=== PATIENT | female | born 1990 | race American Indian/Alaskan Native ===

== ENCOUNTER 2017-06-10 10:55 | Emergency (ER) | payer OTHER ==
--- NOTE | 2017-06-10 11:54 | Emergency Department Report ---
HPI - General Chief Complaint: Extremity Injury, Lower Time Seen by Provider: 06/10/17 11:49 - HPI HPI: PATIENT C/O NUMBNESS, RIGHT LOWER EXT. SINCE SHE WOKE UP THIS MORNING. SHE STATES HERE SYMPTOMS HAVE BEEN ON AND OFF FOR TWO YEARS WITHOUT ANY COMPLETE RESOLUTION. NO FEVER, NO N/V. ED Past Medical Hx - Past Medical History Previous Medical History?: No - Surgical History Past Surgical History?: No - Family History Family history: hypertension - Social History Smoking Status: Current Every Day Smoker Substance Use Type: Alcohol - Medications Home Medications: Home Medications Medication Instructions Recorded Confirmed Last Taken Type methOCARBAMOL [Robaxin TAB] 500 mg PO BID #14 tab 06/06/15 Unknown Rx Gabapentin [Neurontin] 100 mg PO Q8HR #30 capsule 06/10/17 Unknown Rx methylPREDNISolone [Medrol] 4 mg PO QAM #1 tab.ds.pk 06/10/17 Unknown Rx ED Review of Systems ROS: Stated complaint: BILAT LEGS NUMB/HURTING Other details as noted in HPI Comment: All other systems reviewed and negative Gastrointestinal: as per HPI Musculoskeletal: other (LEG NUMBNESS) Physical Exam - Physical Exam Vital Signs: Vital Signs 06/10/17 11:34 Temperature 98.4 F Pulse Rate 76 Respiratory 17 Rate Blood Pressure 150/80 O2 Sat by Pulse 100 Oximetry Physical Exam: - General Limitations: No Limitations General appearance: alert, in no apparent distress - Eye Eye exam: Present: normal appearance - Neck Neck exam: Present: normal inspection - Expanded Lower Extremity Exam Right Hip exam: Present: full ROM, tenderness (along the right bursa), pelvic stability Upper Leg exam: Present: tenderness (visible muscle spasm of the quadriceps) Knee exam: Present: full ROM. Absent: tenderness Lower Leg exam: Absent: Giorgi's sign Ankle exam: Present: full ROM Foot/Toe exam: Present: full ROM, tenderness. Absent: tenderness at base of 5th metatarsal Neuro vascular tendon exam: Present: no vascular compromise. Absent: foot drop , peroneal nerve deficit Gait: Positive: observed and limited by pain - Back Exam Back exam: Absent: vertebral tenderness - Neurological Exam Neurological exam: Present: alert, oriented X3 - Psychiatric Psychiatric exam: Present: normal affect, normal mood - Skin Skin exam: Present: warm, dry, intact, normal color. Absent: rash ED Course Vital Signs 06/10/17 11:34 Temperature 98.4 F Pulse Rate 76 Respiratory 17 Rate Blood Pressure 150/80 O2 Sat by Pulse 100 Oximetry ED Medical Decision Making - Lab Data Result diagrams: 06/10/17 12:58 06/10/17 12:58 Critical care attestation.: If time is entered above; I have spent that time in minutes in the direct care of this critically ill patient, excluding procedure time. ED Disposition Clinical Impression: Paresthesia and pain of right extremity Disposition: DC-01 TO HOME OR SELFCARE Is pt being admited?: No Does the pt Need Aspirin: No Condition: Stable Instructions: Paresthesia (ED) Prescriptions: Gabapentin [Neurontin] 100 mg PO Q8HR #30 capsule methylPREDNISolone [Medrol] 4 mg PO QAM #1 tab.ds.pk Referrals: PRIMARY CAREMD [Primary Care Provider] - 3-5 Days KRISTINA CA MD [Referring] - 3-5 Days Forms: Work/School Excuse Out Patient, Work/School Release Form(ED)
[2017-06-10 13:16] LABS: Basophils % (Auto) 0.7 % (0.0-1.8); Eosinophils % (Auto) 5.6 % (0.0-4.3); Hematocrit 41.8 % (30.3-42.9); Hemoglobin 14.1 gm/dl (10.1-14.3); Mean Corpuscular HGB Conc 34 % (30-34); Mean Corpuscular Hemoglobin 29 pg (28-32); Mean Corpuscular Volume 87 fl (79-97); Platelet Count 295 K/mm3 (140-440); Red Blood Count 4.81 M/mm3 (3.65-5.03); Red Cell Distribution Width 12.9 % (13.2-15.2)
[2017-06-10 13:17] LABS: Urine Drugs of Abuse Note Disclamer
[2017-06-10 13:32] LABS: Alanine Aminotransferase 20 units/L (7-56); Albumin/Globulin Ratio 1.2 %; Alkaline Phosphatase 51 units/L (35-129); Anion Gap 16 mmol/L; BUN/Creatinine Ratio 16.66; Blood Urea Nitrogen 10 mg/dL (7-17); Carbon Dioxide 22 mmol/L (22-30); Glucose 86 mg/dL (65-100); Potassium 4.1 mmol/L (3.6-5.0); Sodium 139 mmol/L (137-145); Total Protein 7.4 g/dL (6.3-8.2)
[2017-06-10 13:37] LABS: Bacteria,Urine 1+ /HPF (Negative); Bilirubin,Urine NEG (Negative); Blood,Urine LG (Negative); Ketones,Urine NEG (Negative); Leukocyte Esterase,Urine MOD (Negative); Nitrite,Urine NEG (Negative); Protein,Urine <15 mg/dL mg/dL (Negative); Urobilinogen,Urine < 2.0 mg/dL (<2.0)
[2017-06-10] MEDS ORDERED: NACL 0.9% 1000 ML 1,000 ML IV ONE (13:56)
[2017-06-10] MEDS ORDERED: DECADRON IV ONE (13:56)
[2017-06-10 14:51] VITALS: BP 125/74
--- NOTE | 2017-06-10 15:28 | XRay Report ---
LUMBAR SPINE RADIOGRAPHS: INDICATION: Low back pain with right leg paralysis. COMPARISON: None similar. FINDINGS: AP and lateral lumbar spine radiographs demonstrate preserved vertebral body stature, alignment and disc heights. Nonobstructive bowel gas pattern. Normal bilateral SI joints. CONCLUSION: No acute lumbar radiographic abnormality. Thank you for the opportunity to participate in this patient's care.
--- NOTE | 2017-06-10 15:32 | Cat Scan Report ---
CT HEAD WITHOUT CONTRAST INDICATION: Right-sided weakness. COMPARISON: None similar. FINDINGS: Noncontrast head CT demonstrates normal ventricles and sulci without acute or recent infarct, hemorrhage, mass effect or midline shift. No abnormal extra-axial fluid collections. Posterior fossa structures and basilar cisterns appear within normal limits. Symmetric eye globes. Mild left maxillary sinus mucosal thickening. Clear remainder imaged paranasal sinuses and mastoid air cells. Intact calvarium. Normal overlying scalp soft tissues. Approximately 3.4 x 1.5 cm prominent adenoids may be directly visualized. CONCLUSION: Left maxillary sinusitis without acute intracranial CT abnormality, as described. Thank you for the opportunity to participate in this patient's care.
== END 2017-06-10 16:20 | disposition home or self-care (01) ==
LOC: ED 10:55
DX: R20.9 Unspecified disturbances of skin sensation (principal); F17.210 Nicotine dependence, cigarettes, uncomplicated
CPT/HCPCS: 36415; 70450; 72100; 80053; 80307; 81001; 81025; 85025; 96361; 96374; 99284; J1100; J7030

== ENCOUNTER 2019-08-31 20:05 | Emergency (ER) | payer SELFPAY ==
[2019-08-31 20:17] VITALS: BP 124/74
--- NOTE | 2019-08-31 21:40 | Event Note ---
ED Screening Note Date of service: 08/31/19 Time: 21:36 ED Screening Note: This is a 28 y.o. F. that presents to the ER with nausea and vomiting x 1 week. Patient reports symptoms are only after eating. LMP 07/26/2019 This initial assessment/diagnostic orders/clinical plan/treatment(s) is/are subject to change based on patients health status, clinical progression and re- assessment by fellow clinical providers in the ED. Further treatment and workup at subsequent clinical providers discretion. Patient/guardian urged not to elope from the ED as their condition may be serious if not clinically assessed and managed. Initial orders include: Labs
[2019-08-31 22:00] LABS: Basophils # (Auto) 0.1 K/mm3 (0.0-0.1); Basophils % (Auto) 0.6 % (0.0-1.8); Eosinophils # (Auto) 0.9 K/mm3 (0.0-0.4); Eosinophils % (Auto) 7.4 % (0.0-4.3); Hematocrit 40.7 % (30.3-42.9); Hemoglobin 13.6 gm/dl (10.1-14.3); Lymphocytes % (Auto) 33.3 % (13.4-35.0); Mean Corpuscular HGB Conc 33 % (30-34); Mean Corpuscular Volume 89 fl (79-97); Monocytes # (Auto) 0.7 K/mm3 (0.0-0.8); Platelet Count 319 K/mm3 (140-440)
[2019-08-31] MEDS ORDERED: FAMOTIDINE 20 MG/2 ML INJ IV ONE (22:04)
[2019-08-31] MEDS ORDERED: ONDANSETRON 4 MG/2 ML INJ IV ONE (22:04)
[2019-08-31] MEDS ORDERED: SODIUM CHLORIDE 0.9% 1000 ML 1,000 ML IV ONE (22:04)
[2019-08-31 22:22] LABS: Alanine Aminotransferase 20 units/L (7-56); Albumin 4.2 g/dL (3.9-5); BUN/Creatinine Ratio 17; Blood Urea Nitrogen 12 mg/dL (7-17); Calcium 9.1 mg/dL (8.4-10.2); Hemolysis Index 13
[2019-08-31 23:28] LABS: Bacteria,Urine 1+ /HPF (Negative); Bilirubin,Urine NEG (Negative); Blood,Urine NEG (Negative); Color,Urine Yellow (Yellow); Protein,Urine <15 mg/dL mg/dL (Negative); RBC,Urine < 1.0 /HPF (0.0-6.0)
[2019-08-31 23:40] LABS: HCG Qualitative,Urine Positive (Negative)
[2019-08-31] MEDS ORDERED: ACETAMINOPHEN 500 MG TAB PO ONE (23:41)
--- NOTE | 2019-09-01 01:13 | Ultrasound Report ---
ULTRASOUND OBSTETRIC LIMITED INDICATION / CLINICAL INFORMATION: abdominal pain - . TECHNIQUE: Transabdominal ultrasound imaging. Patient refused transvaginal examination COMPARISON: None available. FINDINGS: With transabdominal imaging, there is no gestational sac identified within the uterus. The endometrium does appear to be mildly thickened measuring 10 mm. The endometrium is heterogeneous in a ppearance. The uterus is otherwise unremarkable. The uterus measures 9.1 x 3.8 x 4.3 cm. No focal uterine mass i dentified. Both ovaries are well-visualized. There is a cyst within the right ovary measuring 2.2 cm. Right ovar y is otherwise unremarkable. Left ovary is well-visualized and has a normal appearance. No free fluid. IMPRESSION: No evidence of gestational sac within the uterus with transabdominal imaging at this time. The patien t declined transvaginal ultrasound examination. Additionally, there is heterogeneous thickened endome trium which is nonspecific. Findings could be related to very early gestation and close clinical foll ow-up is recommended. Signer Name: Samantha Sidhu MD Signed: 09/01/2019 1:08 AM Workstation Name: [id number]
--- NOTE | 2019-09-01 01:44 | Emergency Department Report ---
ED Female HPI - General Chief complaint: Abdominal Pain Stated complaint: VOMITING Time Seen by Provider: 08/31/19 21:36 Source: patient Mode of arrival: Ambulatory Limitations: No Limitations - History of Present Illness Initial comments: Patient is a A4 28-year-old -Honduran female who presents to the ED with complaint of acute onset persistent severe suprapubic pain with vaginal bleeding for the last 2 days. Patient states that the pain and the bleeding has intensified in the last 8 hours. Patient denies dizziness, fever, chills, diarrhea, nausea, vomiting, dysuria, urinary frequency and urgency, low back pain, syncope, chest pain, shortness of breath, headache or vaginal discharge. MD Complaint: vaginal bleeding, pelvic pain -: Sudden, days(s) (2) Location: suprapubic Radiation: non-radiating Severity: severe Severity scale (0 -10): 7 Quality: cramping, sharp Consistency: constant Improves with: none Worsens with: movement Are you Now?: Yes Last Menstrual Period: 07/24/19 EDC: 04/29/20 Associated Symptoms: denies other symptoms, vaginal bleeding, abdominal pain. denies: vaginal discharge, nausea/vomiting, fever/chills, headaches, loss of appetite, dysuria, hematuria, rash, seizure, shortness of breath, syncope, weakness - Related Data Sexually active: Yes : 4 Para: 0 A: 4 Previous Rx's Medication Instructions Recorded Last Taken Type methOCARBAMOL [Robaxin TAB] 500 mg PO BID #14 tab 06/06/15 Unknown Rx Gabapentin 100 mg PO Q8HR #30 capsule 06/10/17 Unknown Rx methylPREDNISolone [Medrol] 4 mg PO QAM #1 tab.ds.pk 06/10/17 Unknown Rx Acetaminophen [Acetaminophen TAB] 500 mg PO Q4HR PRN #30 tablet 09/01/19 Unknown Rx Promethazine [Phenergan] 25 mg PO Q6HR PRN #24 tab 09/01/19 Unknown Rx Allergies Allergy/AdvReac Type Severity Reaction Status Date / Time No Known Allergies Allergy Verified 06/10/17 11:32 ED Review of Systems ROS: Stated complaint: VOMITING Other details as noted in HPI Constitutional: denies: chills, fever Eyes: denies: eye pain, eye discharge, vision change ENT: denies: ear pain, throat pain Respiratory: denies: cough, shortness of breath, wheezing Cardiovascular: denies: chest pain, palpitations Endocrine: no symptoms reported Gastrointestinal: abdominal pain, nausea. denies: diarrhea Genitourinary: frequency, hematuria, abnormal menses (Vaginal bleeding). denies: urgency, dysuria, discharge Musculoskeletal: denies: back pain, joint swelling, arthralgia Skin: denies: rash, lesions Neurological: denies: headache, weakness, paresthesias Psychiatric: denies: anxiety, depression Hematological/Lymphatic: denies: easy bleeding, easy bruising ED Past Medical Hx - Social History Smoking Status: Never Smoker - Medications Home Medications: Home Medications Medication Instructions Recorded Confirmed Last Taken Type methOCARBAMOL [Robaxin TAB] 500 mg PO BID #14 tab 06/06/15 Unknown Rx Gabapentin 100 mg PO Q8HR #30 capsule 06/10/17 Unknown Rx methylPREDNISolone [Medrol] 4 mg PO QAM #1 tab.ds.pk 06/10/17 Unknown Rx Acetaminophen [Acetaminophen TAB] 500 mg PO Q4HR PRN #30 tablet 09/01/19 Unknown Rx Promethazine [Phenergan] 25 mg PO Q6HR PRN #24 tab 09/01/19 Unknown Rx ED Physical Exam - General Limitations: No Limitations General appearance: alert, in no apparent distress - Head Head exam: Present: atraumatic, normocephalic, normal inspection - Eye Eye exam: Present: normal appearance, PERRL, EOMI Pupils: Present: normal accommodation - ENT ENT exam: Present: normal exam, normal orophraynx, mucous membranes moist, TM's normal bilaterally, normal external ear exam - Neck Neck exam: Present: normal inspection, full ROM - Respiratory Respiratory exam: Present: normal lung sounds bilaterally. Absent: respiratory distress, wheezes, rales, stridor, chest wall tenderness, accessory muscle use, prolonged expiratory - Cardiovascular Cardiovascular Exam: Present: regular rate, normal rhythm, normal heart sounds. Absent: systolic murmur, diastolic murmur, rubs, gallop - GI/Abdominal GI/Abdominal exam: Present: soft, tenderness (Suprapubic tenderness), normal bowel sounds. Absent: hyperactive bowel sounds, hypoactive bowel sounds, organomegaly, bruit - Extremities Exam Extremities exam: Present: normal inspection, full ROM, normal capillary refill - Back Exam Back exam: Present: normal inspection, full ROM. Absent: CVA tenderness (L), muscle spasm, paraspinal tenderness - Neurological Exam Neurological exam: Present: alert, oriented X3, CN II-XII intact, normal gait, reflexes normal - Psychiatric Psychiatric exam: Present: normal affect, normal mood - Skin Skin exam: Present: warm, dry, intact, normal color. Absent: rash ED Course Vital Signs 08/31/19 20:16 Temperature 97.7 F Pulse Rate 88 Respiratory 12 Rate Blood Pressure 124/74 O2 Sat by Pulse 99 Oximetry ED Medical Decision Making - Lab Data Result diagrams: 08/31/19 21:49 08/31/19 21:49 - Radiology Data Radiology results: report reviewed, image reviewed Findings [facility] [address] [place] [address] Ultrasound Report Signed Patient: YAMIL HAYES MR#: [id number] : 1990 Acct:[id number] Age/Sex: 28 / F ADM Date: 08/31/19 Loc: ED Attending Dr: Ordering Physician: ABILIO DUMONT Date of Service: 08/31/19 Procedure(s): US OB <= 14 weeks fetus Accession Number(s): [id number] cc: ABILIO DUMONT ULTRASOUND OBSTETRIC LIMITED INDICATION / CLINICAL INFORMATION: abdominal pain - . TECHNIQUE: Transabdominal ultrasound imaging. Patient refused transvaginal examination COMPARISON: None available. FINDINGS: With transabdominal imaging, there is no gestational sac identified within the uterus. The endometrium does appear to be mildly thickened measuring 10 mm. The endometrium is heterogeneous in appearance. The uterus is otherwise unremarkable. The uterus measures 9.1 x 3.8 x 4.3 cm. No focal uterine mass identified. Both ovaries are well-visualized. There is a cyst within the right ovary measuring 2.2 cm. Right ovary is otherwise unremarkable. Left ovary is well-visualized and has a normal appearance. No free fluid. IMPRESSION: No evidence of gestational sac within the uterus with transabdominal imaging at this time. The patient declined transvaginal ultrasound examination. Additionally, there is heterogeneous thickened endometrium which is nonspecific. Findings could be related to very early gestation and close clinical follow-up is recommended. Signer Name: Samantha Sidhu MD Signed: 09/01/2019 1:08 AM Workstation Name: [id number] Transcribed By: Dictated By: Samantha Sidhu MD Electronically Authenticated By: Samantha Sidhu MD Signed Date/Time: 09/01/19107 DD/ 4 TD/TT: - Medical Decision Making This is a 28-year-old female who presented to the ED we continued acute onset persistent lower abdominal pain with vaginal bleeding for 2 days, worse in the last 8 hours. Patient also stated that her LMP was 07/24/2019 and that this month she missed her menstrual cycle adding that she is not -control and that that is a possibility she could be . In the ED, patient is alert and oriented 3 and distention in distress, with normal vital signs. Lab test results were reviewed and shows acute leukocytosis of 11,900. The urine hCG test was positive for , and the hCG Quant was 162.2. Patient declined transvaginal ultrasound but pelvic ultrasound showed no evidence of gestational sac within the uterus with transabdominal imaging at this time. The patient declined transvaginal ultrasound examination. Additionally, there is heterogeneous thickened endometrium which is nonspecific. Findings could be related to very early gestation and close clinical follow-up is recommended. Patient was treated for pain in the ED and was discharged home and advised to take Tylenol as needed for pain and to maintain a complete pelvic rest and return to the ED or to her [facility]ICATION [facility]ULT[facility] physician in 48 hours for repeat hCG Quant to ascertain viability of . Patient was otherwise advised to return to the ED immediately if symptoms get worse. - Differential Diagnosis Threatened miscarriage; Abdominal pain; UTI; ; ovarian cysts Critical care attestation.: If time is entered above; I have spent that time in minutes in the direct care of this critically ill patient, excluding procedure time. ED Disposition Clinical Impression: Threatened miscarriage in early , Vaginal bleeding affecting early Abdominal pain during Qualifiers: Trimester: first trimester Qualified Code(s): O26.891 - Other specified related conditions, first trimester; R10.9 - Unspecified abdominal pain Disposition: DC-01 TO HOME OR SELFCARE Is pt being admited?: No Does the pt Need Aspirin: No Condition: Stable Instructions: Abdominal Pain (ED), Threatened Miscarriage (ED) Additional Instructions: Maintain a complete pelvic rest and avoid heavy lifting, strenuous physical activity or sexual intercourse. Take Tylenol as needed for pain, and follow up with the COMMUNICATION CONSULTANT physician Dr. Pizano in the next 2-3 days for reevaluation. Please contact Dr. Pizano's office first thing on 09/03/2019 morning to schedule an appointment for evaluation. Return to the ED immediately if symptoms get worse. Otherwise return to the ED in 48 hours for serial hCG test to ascertain the viability of . Prescriptions: Acetaminophen [Acetaminophen TAB] 500 mg PO Q4HR PRN #30 tablet PRN Reason: Pain , Severe (7-10) Promethazine [Phenergan] 25 mg PO Q6HR PRN #24 tab PRN Reason: Nausea Referrals: KEISHA PIZANO MD [Staff Physician] - 2-3 Days Time of Disposition: 01:42 Print Language: GREEK
== END 2019-09-01 02:49 | disposition home or self-care (01) ==
LOC: ED 20:05
DX: O20.0 Threatened abortion (principal); O20.8 Other hemorrhage in early pregnancy; O21.8 Other vomiting complicating pregnancy; Z79.899 Other long term (current) drug therapy; Z3A.01 Less than 8 weeks gestation of pregnancy
CPT/HCPCS: 36415; 76801; 80053; 81001; 81025; 83690; 84702; 85025; 96361; 96374; 96375; 99284; J2405; J7030

== ENCOUNTER 2020-03-30 15:50 | Emergency (ER) | payer OTHER ==
[2020-03-30 17:22] LABS: Bacteria,Urine 3+ /HPF (Negative)
[2020-03-30 17:23] LABS: Bilirubin,Urine NEG (Negative); Blood,Urine LG (Negative); Color,Urine Yellow (Yellow); Protein,Urine <15 mg/dL mg/dL (Negative)
[2020-03-30 17:26] LABS: RBC,Urine > 182.0 /HPF (0.0-6.0)
[2020-03-30 18:05] LABS: Hemoglobin 13.7 gm/dl (10.1-14.3); Mean Corpuscular HGB Conc 33 % (30-34); Mean Corpuscular Volume 88 fl (79-97); Platelet Count 323 K/mm3 (140-440); Red Blood Count 4.79 M/mm3 (3.65-5.03); Red Cell Distribution Width 13.7 % (13.2-15.2)
[2020-03-30 18:24] LABS: BUN/Creatinine Ratio 15; Blood Urea Nitrogen 9 mg/dL (7-17); Hemolysis Index 18
--- NOTE | 2020-03-30 18:39 | Emergency Department Report ---
ED HPI - General Chief complaint: Vaginal Bleeding Stated complaint: 9WKS PREG, BLEEDING Time Seen by Provider: 03/30/20 18:34 Source: patient Mode of arrival: Ambulatory Limitations: No Limitations - History of Present Illness Initial comments: Patient is a 29-year-old female that presents emergency room with complaints of vaginal bleeding. Patient states she is 3 months . Patient states that she is already had 2 ultrasounds by her [employer], Dr. Nation. Patient denies abdominal pain. Patient states approximately 3 hours ago she was having sex and began to bleed. Patient states she had a large amount of blood and clots passing from the vagina. Patient states she felt like it was her water breaking, it was a large gush. Patient denies fever and chills. Patient denies pain. Patient denies discomfort. Patient states she is a A5. MD Complaint: vaginal bleeding -: Sudden Radiation: none Severity scale (0 -10): 0 Improves with: none Worsens with: none Associated symptoms: vaginal bleeding Vaginal bleeding: heavy, clots :: Yes Number of weeks : 12 OB History - Current : no complications OB History - Previous Pregnancies: miscarriage Pre-silvestre care: followed by OB, previous ultrasound confi - Related Data Previous Rx's Medication Instructions Recorded Last Taken Type methOCARBAMOL [Robaxin TAB] 500 mg PO BID #14 tab 06/06/15 Unknown Rx Gabapentin 100 mg PO Q8HR #30 capsule 06/10/17 Unknown Rx methylPREDNISolone [Medrol] 4 mg PO QAM #1 tab.ds.pk 06/10/17 Unknown Rx Acetaminophen [Acetaminophen TAB] 500 mg PO Q4HR PRN #30 tablet 09/01/19 Unknown Rx Promethazine [Phenergan] 25 mg PO Q6HR PRN #24 tab 09/01/19 Unknown Rx Allergies Allergy/AdvReac Type Severity Reaction Status Date / Time No Known Allergies Allergy Verified 06/10/17 11:32 ED Review of Systems ROS: Stated complaint: 9WKS PREG, BLEEDING Other details as noted in HPI Constitutional: denies: chills, fever Eyes: denies: eye pain, eye discharge, vision change ENT: denies: ear pain, throat pain Respiratory: denies: cough, shortness of breath, wheezing Cardiovascular: denies: chest pain, palpitations Endocrine: no symptoms reported Gastrointestinal: denies: abdominal pain, nausea, diarrhea Genitourinary: as per HPI. denies: urgency, dysuria, discharge Musculoskeletal: denies: back pain, joint swelling, arthralgia Skin: denies: rash, lesions Neurological: denies: headache, weakness, paresthesias Psychiatric: denies: anxiety, depression Hematological/Lymphatic: denies: easy bleeding, easy bruising ED Past Medical Hx - Past Medical History Previous Medical History?: Yes Additional medical history: Miscarriage x 5 - Surgical History Past Surgical History?: No - Family History Family history: no significant - Social History Smoking Status: Never Smoker Substance Use Type: None - Medications Home Medications: Home Medications Medication Instructions Recorded Confirmed Last Taken Type methOCARBAMOL [Robaxin TAB] 500 mg PO BID #14 tab 06/06/15 Unknown Rx Gabapentin 100 mg PO Q8HR #30 capsule 06/10/17 Unknown Rx methylPREDNISolone [Medrol] 4 mg PO QAM #1 tab.ds.pk 06/10/17 Unknown Rx Acetaminophen [Acetaminophen TAB] 500 mg PO Q4HR PRN #30 tablet 09/01/19 Unknown Rx Promethazine [Phenergan] 25 mg PO Q6HR PRN #24 tab 09/01/19 Unknown Rx ED Physical Exam - General Limitations: No Limitations General appearance: alert, in no apparent distress - Head Head exam: Present: atraumatic, normocephalic - Eye Eye exam: Present: normal appearance - ENT ENT exam: Present: mucous membranes moist - Neck Neck exam: Present: normal inspection - Respiratory Respiratory exam: Present: normal lung sounds bilaterally. Absent: respiratory distress - Cardiovascular Cardiovascular Exam: Present: regular rate, normal rhythm. Absent: systolic murmur, diastolic murmur, rubs, gallop - GI/Abdominal GI/Abdominal exam: Present: soft, normal bowel sounds - Extremities Exam Extremities exam: Present: normal inspection - Back Exam Back exam: Present: normal inspection - Neurological Exam Neurological exam: Present: alert, oriented X3 - Psychiatric Psychiatric exam: Present: normal affect, normal mood - Skin Skin exam: Present: warm, dry, intact, normal color. Absent: rash ED Course Vital Signs 03/30/20 16:42 Temperature 98.4 F Pulse Rate 90 Respiratory 18 Rate Blood Pressure 130/71 O2 Sat by Pulse 99 Oximetry - Reevaluation(s) Reevaluation #1: I discussed all results and clinical findings with patient. I discussed plan of care with patient. Patient agrees with plan of care. Patient is stable for discharge. Patient will be discharged home. Patient given discharge instructions. Patient given miscarriage precautions. Patient voiced understanding of discharge instructions. 03/30/20 20:44 - Consultations Consultation #1: I discussed case with Dr. Nation, [employer]. Dr. Nation states she will see the patient Tuesday morning. I will inform the patient to contact Dr. Nation office at 9 AM for appointment. 03/30/20 20:44 ED Medical Decision Making - Lab Data Result diagrams: 03/30/20 17:08 03/30/20 17:08 - Radiology Data Radiology results: report reviewed TRANSABDOMINAL OB PELVIC ULTRASOUND INDICATION / CLINICAL INFORMATION: Vaginal bleeding. COMPARISON: 03/13/20. FINDINGS: There is a single intrauterine with an estimated gestational age of 11 weeks 1 day by crown-rump length. The heart rate is 168 bpm. There is a very small area of implantation hemorrhage inferior to the sac measuring 1.4 cm in greatest dimension. The right ovary measures 4.1 x 2.8 x 2.9 cm and the left ovary 2.8 x 2.7 x 2.3 cm. There is a 2.6 cm corpus luteal cyst in the right ovary. No free fluid is seen. IMPRESSION: 1. Single viable 11 week 1 day intrauterine . Tiny area of implantation hemorrhage. 2. 2.6 cm corpus luteal cyst in the right ovary. - Medical Decision Making Patient is a 29-year-old female that presents emergency room with complaints of vaginal bleeding after sexual intercourse. Patient is believed to be 3 months . Patient has already had [employer] appointments. Patient is already had 2 ultrasounds. Patient has confirmed IUP outside of the ER. Patient did not have any abdominal pain. Patient had labs done which showed an elevated hCG and a contaminated UA and patient is Rh+. Patient's vaginal bleeding stopped while in the ER. Patient is stable for discharge. I discussed the patient's case with her [employer] and the [employer] is and agrees the patient is stable for discharge. Patient discharged home. Patient given discharge instructions. - Differential Diagnosis Vaginal bleeding in , threatened miscarriage, Critical care attestation.: If time is entered above; I have spent that time in minutes in the direct care of this critically ill patient, excluding procedure time. ED Disposition Clinical Impression: Vaginal bleeding during , Threatened miscarriage in early Qualifiers: Weeks of gestation: 11 weeks Qualified Code(s): Z3A.11 - 11 weeks gestation of Disposition: DC-01 TO HOME OR SELFCARE Is pt being admited?: No Does the pt Need Aspirin: No Condition: Stable Instructions: Threatened Miscarriage (ED) Additional Instructions: Patient to follow-up with primary care in 2 to 3 days. Patient to follow-up with [employer] in 24 hours. Patient to contact her [employer], Dr. Nation 9 AM Tuesday for an appointment. Patient to rest. Patient to increase water. Nothing per vagina until cleared by [employer]. Patient to avoid strenuous exercise or heavy lifting until cleared by [employer]. Patient to take Tylenol as needed for pain. Patient to continue vitamin. Patient to return to the ER if condition worsens, changes or new symptoms arise. Referrals: PRIMARY CAREMD [Primary Care Provider] - 2-3 Days TOMASA NATION MD [Staff Physician] - 24 Hours Time of Disposition: 20:42
[2020-03-30 18:49] LABS: Basophils % (Manual) 0 % (0.0-1.8); Total Cells Counted 100
[2020-03-30 18:50] LABS: Stomatocytes Rare
[2020-03-30 18:51] LABS: Large Platelets 1+; Platelet Estimate Consistent w Auto
[2020-03-30 21:08] VITALS: BP 136/76
== END 2020-03-30 21:10 | disposition home or self-care (01) ==
LOC: ED 15:50
DX: O20.0 Threatened abortion (principal); Z79.899 Other long term (current) drug therapy; Z3A.11 11 weeks gestation of pregnancy
CPT/HCPCS: 36415; 76801; 80048; 81001; 84702; 84703; 85007; 85025

== ENCOUNTER 2020-05-29 19:29 | Emergency (ER) | payer OTHER ==
[2020-05-29 20:27] LABS: Basophils # (Auto) 0.1 K/mm3 (0.0-0.1); Basophils % (Auto) 0.7 % (0.0-1.8); Eosinophils # (Auto) 0.4 K/mm3 (0.0-0.4); Hematocrit 39.9 % (30.3-42.9); Hemoglobin 13.1 gm/dl (10.1-14.3); Lymphocytes # (Auto) 2.7 K/mm3 (1.2-5.4); Lymphocytes % (Auto) 24.5 % (13.4-35.0); Mean Corpuscular HGB Conc 33 % (30-34); Mean Corpuscular Volume 87 fl (79-97); Monocytes # (Auto) 0.4 K/mm3 (0.0-0.8); Monocytes % (Auto) 3.7 % (0.0-7.3); Platelet Count 375 K/mm3 (140-440); Red Blood Count 4.58 M/mm3 (3.65-5.03); Red Cell Distribution Width 13.1 % (13.2-15.2)
[2020-05-29 20:38] LABS: Alanine Aminotransferase 19 units/L (7-56); Albumin 3.7 g/dL (3.9-5); Blood Urea Nitrogen 6 mg/dL (7-17); Calcium 9.7 mg/dL (8.4-10.2); Hemolysis Index 3
[2020-05-29 20:40] LABS: BUN/Creatinine Ratio 10; Creatine Kinase MB < 1.0 ng/mL (0.0-4.0)
[2020-05-29 23:16] LABS: Bilirubin,Urine NEG (Negative); Blood,Urine NEG (Negative); Color,Urine Yellow (Yellow); Mucus,Urine FEW /HPF; Protein,Urine <15 mg/dL mg/dL (Negative)
--- NOTE | 2020-05-30 03:24 | Emergency Department Report ---
ED Extremity Problem HPI - General Chief complaint: Extremity Problem,Nontraumatic Stated complaint: SWELLING IN LEGS AND FEET Time Seen by Provider: 05/30/20 03:10 Source: patient Mode of arrival: Ambulatory Limitations: No Limitations - History of Present Illness Initial comments: 29-year-old female is currently 18 weeks history of 5 previous miscarriages presents to the hospital complaining of pain to left leg x1 week. Patient states it feels like a burning/tingling pain that radiates from her hip down to her toes. Symptoms worse with prolonged sitting at work. Today pt is having difficulty walking due to pain. Patient was instructed to sit at work due to the fact that she has had several miscarriages and is high risk for pregnanc y. Patient denies any bowel bladder incontinence, weakness, or calf tenderness. Patient complains of dyspnea throughout her entire that is unchanged and persistent and intermittent heartburn symptoms. She denies pleuritic chest pain. Patient has had similar neurologic symptoms down both her legs in the past. As per medical record review patient was diagnosed with paresthesias of the right lower extremity in 2017 and treated with Medrol Dosepak and gabapentin. - Related Data Previous Rx's Medication Instructions Recorded Last Taken Type methOCARBAMOL [Robaxin TAB] 500 mg PO BID #14 tab 06/06/15 Unknown Rx Gabapentin 100 mg PO Q8HR #30 capsule 06/10/17 Unknown Rx methylPREDNISolone [Medrol] 4 mg PO QAM #1 tab.ds.pk 06/10/17 Unknown Rx Acetaminophen [Acetaminophen TAB] 500 mg PO Q4HR PRN #30 tablet 09/01/19 Unknown Rx Promethazine [Phenergan] 25 mg PO Q6HR PRN #24 tab 09/01/19 Unknown Rx Acetaminophen [Non-Aspirin Extra 1 - 2 tab PO Q6HR PRN #20 tablet 05/30/20 Unknown Rx Strength] Allergies Allergy/AdvReac Type Severity Reaction Status Date / Time No Known Allergies Allergy Verified 06/10/17 11:32 ED Review of Systems ROS: Stated complaint: SWELLING IN LEGS AND FEET Other details as noted in HPI ED Past Medical Hx - Past Medical History Previous Medical History?: Yes Additional medical history: Miscarriage x 5 - Surgical History Past Surgical History?: No - Social History Smoking Status: Never Smoker Substance Use Type: None - Medications Home Medications: Home Medications Medication Instructions Recorded Confirmed Last Taken Type methOCARBAMOL [Robaxin TAB] 500 mg PO BID #14 tab 06/06/15 Unknown Rx Gabapentin 100 mg PO Q8HR #30 capsule 06/10/17 Unknown Rx methylPREDNISolone [Medrol] 4 mg PO QAM #1 tab.ds.pk 06/10/17 Unknown Rx Acetaminophen [Acetaminophen TAB] 500 mg PO Q4HR PRN #30 tablet 09/01/19 Unknown Rx Promethazine [Phenergan] 25 mg PO Q6HR PRN #24 tab 09/01/19 Unknown Rx Acetaminophen [Non-Aspirin Extra 1 - 2 tab PO Q6HR PRN #20 tablet 05/30/20 Unknown Rx Strength] ED Physical Exam - General Limitations: No Limitations - Other Other exam information: General: No acute distress Head: Atraumatic Eyes: normal appearance ENT: Moist mucous membranes Neck: Normal appearance, no midline tenderness Chest: Clear to auscultation bilaterally CV: Regular rate and rhythm Abdomen: Soft, normal bowel sounds, gravid abdomen nontender, nondistended, no rebound or guarding Back: Normal inspection Extremity: Normal inspection no edema. No leg asymmetry. No calf tenderness. Worsening paresthesias radiation to foot with straight leg raise. No tenderness at sciatic notch, 2+ DP pulse Neuro: Alert O x 3, no facial asymmetry, speech clear, no gross motor sensory deficit Psych: Appropriate behavior Skin: No rash ED Course Vital Signs 05/29/20 05/30/20 19:42 03:42 Temperature 97.5 F L 98.7 F Pulse Rate 109 H 99 H Respiratory 18 18 Rate Blood Pressure 135/77 Blood Pressure 126/77 [Left] O2 Sat by Pulse 99 99 Oximetry - Consultations Consultation #1: 05/30/20 03:35 Case discussed with operations agent Alma Delia basilio initiating Medrol Dosepak or steroids for patient sciatic pain. She advises to just try Tylenol. If no improvement with Tylenol and then a short course of prednisone can be provided. Does not advise to give IM steroids or Medrol Dosepak at this time ED Medical Decision Making - Lab Data Result diagrams: 05/29/20 20:06 05/29/20 20:06 Lab Results 05/29/20 05/29/20 05/29/20 Range/Units 20:06 20:06 20:06 WBC 11.0 (4.5-11.0) K/mm3 RBC 4.58 (3.65-5.03) M/mm3 Hgb 13.1 (10.1-14.3) gm/dl Hct 39.9 (30.3-42.9) % MCV 87 (79-97) fl MCH 29 (28-32) pg MCHC 33 (30-34) % RDW 13.1 L (13.2-15.2) % Plt Count 375 (140-440) K/mm3 Lymph % (Auto) 24.5 (13.4-35.0) % Burke % (Auto) 3.7 (0.0-7.3) % Eos % (Auto) 4.0 (0.0-4.3) % Baso % (Auto) 0.7 (0.0-1.8) % Lymph # 2.7 (1.2-5.4) K/mm3 Burke # 0.4 (0.0-0.8) K/mm3 Eos # 0.4 (0.0-0.4) K/mm3 Baso # 0.1 (0.0-0.1) K/mm3 Seg Neutrophils % 67.1 (40.0-70.0) % Seg Neutrophils # 7.4 (1.8-7.7) K/mm3 Sodium 138 (137-145) mmol/L Potassium 3.5 L (3.6-5.0) mmol/L Chloride 101.2 (98-107) mmol/L Carbon Dioxide 21 L (22-30) mmol/L Anion Gap 19 mmol/L BUN 6 L (7-17) mg/dL Creatinine 0.6 (0.6-1.2) mg/dL Estimated GFR > 60 ml/min BUN/Creatinine Ratio 10 % Glucose 108 H (65-100) mg/dL Calcium 9.7 (8.4-10.2) mg/dL Total Bilirubin 0.30 (0.1-1.2) mg/dL AST 16 (5-40) units/L ALT 19 (7-56) units/L Alkaline Phosphatase 64 (35-129) units/L Total Creatine Kinase 37 (30-135) units/L CK-MB (CK-2) < 1.0 (0.0-4.0) ng/mL Troponin T < 0.010 (0.00-0.029) ng/mL NT-Pro-B Natriuret Pep < 5 (0-450) pg/mL Total Protein 7.0 (6.3-8.2) g/dL Albumin 3.7 L (3.9-5) g/dL Albumin/Globulin Ratio 1.1 % Urine Color (Yellow) Urine Turbidity (Clear) Urine pH (5.0-7.0) Ur Specific Hematite (1.003-1.030) Urine Protein (Negative) mg/dL Urine Glucose (UA) (Negative) mg/dL Urine Ketones (Negative) mg/dL Urine Blood (Negative) Urine Nitrite (Negative) Urine Bilirubin (Negative) Urine Urobilinogen (<2.0) mg/dL Ur Leukocyte Esterase (Negative) Urine WBC (Auto) (0.0-6.0) /HPF Urine RBC (Auto) (0.0-6.0) /HPF U Epithel Cells (Auto) (0-13.0) /HPF Urine Mucus /HPF 05/29/20 Range/Units Unknown WBC (4.5-11.0) K/mm3 RBC (3.65-5.03) M/mm3 Hgb (10.1-14.3) gm/dl Hct (30.3-42.9) % MCV (79-97) fl MCH (28-32) pg MCHC (30-34) % RDW (13.2-15.2) % Plt Count (140-440) K/mm3 Lymph % (Auto) (13.4-35.0) % Burke % (Auto) (0.0-7.3) % Eos % (Auto) (0.0-4.3) % Baso % (Auto) (0.0-1.8) % Lymph # (1.2-5.4) K/mm3 Burke # (0.0-0.8) K/mm3 Eos # (0.0-0.4) K/mm3 Baso # (0.0-0.1) K/mm3 Seg Neutrophils % (40.0-70.0) % Seg Neutrophils # (1.8-7.7) K/mm3 Sodium (137-145) mmol/L Potassium (3.6-5.0) mmol/L Chloride (98-107) mmol/L Carbon Dioxide (22-30) mmol/L Anion Gap mmol/L BUN (7-17) mg/dL Creatinine (0.6-1.2) mg/dL Estimated GFR ml/min BUN/Creatinine Ratio % Glucose (65-100) mg/dL Calcium (8.4-10.2) mg/dL Total Bilirubin (0.1-1.2) mg/dL AST (5-40) units/L ALT (7-56) units/L Alkaline Phosphatase (35-129) units/L Total Creatine Kinase (30-135) units/L CK-MB (CK-2) (0.0-4.0) ng/mL Troponin T (0.00-0.029) ng/mL NT-Pro-B Natriuret Pep (0-450) pg/mL Total Protein (6.3-8.2) g/dL Albumin (3.9-5) g/dL Albumin/Globulin Ratio % Urine Color Yellow (Yellow) Urine Turbidity Clear (Clear) Urine pH 5.0 (5.0-7.0) Ur Specific Hematite 1.015 (1.003-1.030) Urine Protein <15 mg/dl (Negative) mg/dL Urine Glucose (UA) Neg (Negative) mg/dL Urine Ketones Neg (Negative) mg/dL Urine Blood Neg (Negative) Urine Nitrite Neg (Negative) Urine Bilirubin Neg (Negative) Urine Urobilinogen 2.0 (<2.0) mg/dL Ur Leukocyte Esterase Tr (Negative) Urine WBC (Auto) 2.0 (0.0-6.0) /HPF Urine RBC (Auto) 2.0 (0.0-6.0) /HPF U Epithel Cells (Auto) 2.0 (0-13.0) /HPF Urine Mucus Few /HPF - Medical Decision Making Patient received Tylenol with minimal improvement in pain however, she declines offer for additional pain medications or steroids at this time. Patient will be discharged with a work excuse for 4 days off of work so she may rest. She was provided paperwork regarding alternative methods of treating related sciatica involving positioning, stretching, and massage. She was instructed to take Tylenol with food as needed for pain and to follow-up with her doctor Patient also noted to have mild hypokalemia and declined offer for p.o. potassium chloride. Informed she can obtain potassium for banana Critical Care Time: No Critical care attestation.: If time is entered above; I have spent that time in minutes in the direct care of this critically ill patient, excluding procedure time. ED Disposition Clinical Impression: 18 weeks gestation of , Hypokalemia Sciatica Qualifiers: Laterality: left Qualified Code(s): M54.32 - Sciatica, left side Disposition: - TO HOME OR SELFCARE Is pt being admited?: No Does the pt Need Aspirin: No Condition: Stable Instructions: Sciatica (ED), Hypokalemia (ED) Additional Instructions: Take the medication as prescribed. Follow-up with your doctor or doctor/clinic provided. Return if symptoms worsen as indicated by your discharge instructions. Prescriptions: Acetaminophen [Non-Aspirin Extra Strength] 1 - 2 tab PO Q6HR PRN #20 tablet PRN Reason: Pain , Severe (7-10) Referrals: PRIMARY CARE,MD [Primary Care Provider] - 3-5 Days Time of Disposition: 05:08
[2020-05-30] MEDS ORDERED: ACETAMINOPHEN 500 MG TAB PO ONE (03:26)
[2020-05-30 03:44] VITALS: BP 126/77
[2020-05-30] MEDS ORDERED: POTASSIUM CHLORIDE ER 20 MEQ TAB PO ONE (03:45)
== END 2020-05-30 05:20 | disposition home or self-care (01) ==
LOC: ED 19:29
DX: O26.92 Pregnancy related conditions, unspecified, second trimester (principal); E87.6 Hypokalemia; M54.32 Sciatica, left side; Z3A.18 18 weeks gestation of pregnancy; Z79.899 Other long term (current) drug therapy
CPT/HCPCS: 36415; 80053; 81001; 82550; 82553; 83880; 84484; 85025; 99283

== ENCOUNTER 2020-07-21 21:36 | Outpatient (CLI) | payer OTHER ==
[2020-07-21 21:56] VITALS: BP 122/80
[2020-07-21] MEDS ORDERED: LACTATED RINGERS 1,000 ML IV ONE (22:11)
--- NOTE | 2020-07-21 22:56 | Ultrasound Report ---
US OB limited INDICATION: cervical length. TECHNIQUE: Limited OB ultrasound obtained. COMPARISON: None available. FINDINGS: Cervical length measures 2.3 cm. heart rate measures 1 52 bpm. Signer Name: Gideon Patterson MD Signed: 07/21/2020 10:51 PM Workstation Name: [id number]
[2020-07-21 23:43] LABS: Bacteria,Urine 1+ /HPF (Negative); Bilirubin,Urine NEG (Negative); Blood,Urine NEG (Negative); Color,Urine Yellow (Yellow); Protein,Urine <15 mg/dL mg/dL (Negative)
[2020-07-22] MEDS ORDERED: LIDOCAINE-MPF (1%) 10 MG/1 ML VIAL 5 ML INFILTRATI ONE (01:41)
[2020-07-22] MEDS ORDERED: cefTRIAXone/NS 1 GM/50 ML 1 GM/50 ML BAG IV ONE (01:45)
== END 2020-07-22 03:05 | disposition home or self-care (01) ==
LOC: TRG 21:36 → APU 21:42 → TRG 07-22 03:05
PROVIDERS: ATTEND Obstetrics & Gynecology
DX: O26.892 Other specified pregnancy related conditions, second trimester (principal); N89.8 Other specified noninflammatory disorders of vagina; Z3A.25 25 weeks gestation of pregnancy; Z87.891 Personal history of nicotine dependence
CPT/HCPCS: 36415; 59025; 76815; 81001; 82731; 87086; 96360; 96365; J0696; J7120

== ENCOUNTER 2020-09-05 10:21 | Outpatient (CLI) | payer OTHER ==
[2020-09-05 11:00] VITALS: BP 112/69
[2020-09-05] MEDS ORDERED: LACTATED RINGERS 1,000 ML IV SCH (11:00)
[2020-09-05 11:24] LABS: Bacteria,Urine 1+ /HPF (Negative); Bilirubin,Urine NEG (Negative); Blood,Urine NEG (Negative); Color,Urine Yellow (Yellow); Mucus,Urine FEW /HPF; Protein,Urine <15 mg/dL mg/dL (Negative)
[2020-09-05] MEDS ORDERED: BETAMET ACET/BETAMET NA PH 6 MG/ML INJ 5 ML MDV IM ONE ×2 (12:56→18:26)
[2020-09-05] MEDS ORDERED: TERBUTALINE 1 MG/1 ML INJ SUB-Q SCH (18:00)
--- NOTE | 2020-09-08 07:30 | Ultrasound Report ---
US OB transvaginal INDICATION: Cervical length. TECHNIQUE: Transvaginal OB ultrasound to measure cervical length COMPARISON: None available. FINDINGS: The cervix measures 1.2 cm. Signer Name: Gideon Patterson MD Signed: 09/08/2020 7:25 AM Workstation Name: [email or web address]
--- NOTE | 2020-09-08 08:00 | Ultrasound Report ---
US OB limited INDICATION / CLINICAL INFORMATION: cervical length, ARJUN. COMPARISON: 07/21/2020 FINDINGS: Cervical length measures 1.2 cm, decreased from 2.3 cm on the previous exam. Amniotic fluid volume is normal, with a fluid index of 16 cm Single, viable intrauterine in cephalic presentation. heart rate 137. Placenta is posterior and fundal. IMPRESSION: 1. Single, viable intrauterine . 2. Normal amniotic fluid volume, ARJUN of 16 cm. 3. Cervical length measures 1.2 cm, decreased from the exam 2 weeks ago. Signer Name: Artie Love MD Signed: 09/05/2020 6:05 PM Workstation Name: [id number]
== END 2020-09-05 19:28 | disposition home or self-care (01) ==
LOC: TRG 10:21 → APU 10:22 → TRG 19:28
PROVIDERS: ATTEND Obstetrics & Gynecology
DX: O47.03 False labor before 37 completed weeks of gestation, third trimester (principal); Z3A.32 32 weeks gestation of pregnancy
CPT/HCPCS: 36415; 59025; 76815; 76817; 81001; 82731; 87086; 96372; J0702; J3105

== ENCOUNTER 2020-09-06 19:17 | Observation (INO) | payer OTHER ==
[2020-09-06] MEDS ORDERED: LACTATED RINGERS 1,000 ML IV ONE (19:55)
[2020-09-06 20:12] LABS: Bilirubin,Urine NEG (Negative); Blood,Urine NEG (Negative); Color,Urine Yellow (Yellow); Hyaline Casts,Urine 1 /LPF; Protein,Urine <15 mg/dL mg/dL (Negative); Urobilinogen,Urine < 2.0 mg/dL (<2.0)
[2020-09-06] MEDS ORDERED: BETAMET ACET/BETAMET NA PH 6 MG/ML INJ 5 ML MDV IM ONE (21:01)
[2020-09-06] MEDS ORDERED: LACTATED RINGERS 500 ML IV ONE (22:16)
[2020-09-06] MEDS ORDERED: ONDANSETRON 4 MG/2 ML INJ IV PRN (22:16)
[2020-09-06] MEDS ORDERED: ACETAMINOPHEN 325 MG TAB PO PRN (22:16)
[2020-09-06] MEDS ORDERED: DOCUSATE SODIUM 100 MG CAP PO PRN (22:16)
[2020-09-06] MEDS ORDERED: diphenhydrAMINE 25 MG CAP PO PRN (22:16)
[2020-09-06] MEDS ORDERED: SODIUM CHLORIDE NASAL SPRAY 44ML NS PRN (22:16)
[2020-09-06] MEDS ORDERED: SIMETHICONE 80 MG CHEW TAB PO PRN (22:16)
[2020-09-06] MEDS ORDERED: LACTATED RINGERS 1,000 ML IV SCH (23:00)
[2020-09-06] MEDS ORDERED: metroNIDAZOLE 0.75% VAGINAL GEL 70 GM VG SCH (23:15)
[2020-09-07] MEDS: NIFEdipine*For Tocolysis only* 10 MG CAPSULE PO SCH ×2 (00:22→08:54)
[2020-09-07 01:12] LABS: Basophils % (Auto) 0.1 % (0.0-1.8); Eosinophils % (Auto) 0.1 % (0.0-4.3); Hematocrit 32.6 % (30.3-42.9); Hemoglobin 10.6 gm/dl (10.1-14.3); Lymphocytes # (Auto) 1.4 K/mm3 (1.2-5.4); Lymphocytes % (Auto) 8.4 % (13.4-35.0); Mean Corpuscular HGB Conc 33 % (30-34); Mean Corpuscular Volume 81 fl (79-97); Monocytes # (Auto) 0.6 K/mm3 (0.0-0.8); Monocytes % (Auto) 3.9 % (0.0-7.3); Platelet Count 347 K/mm3 (140-440); Red Blood Count 4.03 M/mm3 (3.65-5.03); Red Cell Distribution Width 14.9 % (13.2-15.2)
--- NOTE | 2020-09-07 07:57 | Ultrasound Report ---
ULTRASOUND OBSTETRIC INDICATION / CLINICAL INFORMATION: 33 WKS, WELL BEING. TECHNIQUE: Transabdominal. COMPARISON: 09/05/2020 FINDINGS: There is a single intrauterine . BREATHING MOVEMENT = 0 GROSS BODY MOVEMENT = 2 TONE = 2 QUALITATIVE AMNIOTIC FLUID VOLUME = 2 TOTAL BIOPHYSICAL SCORE = 6/8 Biparietal Diameter = 8.1 cm = 32.3 weeks.days Head Circumference = 30 cm = 33.2 weeks.days Abdominal Circumference = 28 cm = 32.3 weeks.days Femur Length = 6.1 cm = 31.4 weeks.days Average Ultrasound Age (AUA) = 32.3 weeks.days Heart Rate: 142 beats per minute. Estimated Weight in grams (if calculated): 1934 Position: cephalic. Cervix: closed. Placenta: Fundal and free of the os. Amniotic Fluid Volume: normal Amniotic Fluid Index (ARJUN) in cm (if calculated): 12.5. Maternal Adnexa: No significant abnormality. IMPRESSION: 1. Single, living intrauterine with estimated sonographic age of 32.3 weeks.days 2. Biophysical profile score is 6 out of 8, due to absence of breathing movements on the curren t exam. Signer Name: Gideon Patterson MD Signed: 09/07/2020 7:52 AM Workstation Name: [employer]
[2020-09-07] MEDS ORDERED: NIFEdipine*For Tocolysis only* 10 MG CAPSULE PO SCH (08:00)
[2020-09-07] MEDS ORDERED: PRENATAL VIT27-FE FUMARATE-FOLIC ACID VIT TAB PO SCH (10:00)
--- NOTE | 2020-09-07 13:43 | History and Physical Report ---
History of Present Illness Date of examination: 09/07/20 Date of admission: 09/07/20 00:02 Chief complaint: contractions, pelvic pain History of present illness: Pt is a 29 year old GIANNI 10[birth year] at 32w4d presented last night with uterine contractions. Her pulse was too rapid for terbutaline. She had presented to triage on 09/05/20, was found to have a positive FFN on 09/05/20. A steroid course was initiated and two doses have been administered (09/05 and 09/06). She has been in observation overnight on Procardia for tocolysis with resolution of her contractions. She reports decreased movement since administration of steroids. BPP 09/07/20 is 8/10 (-2 for breathing). 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 genital herpes without lesion or prodrome, Partner HIV positive (pt HIV negative 09/06/20), sciatica, sickle cell trait, and subclinical hyperthyroidism. Her GBS status is unknown. 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 Family/Genetic History: hypertension Social history: no significant social history - Obstetrical History Expected Date of Delivery: 10/29/20 Actual Gestation: 32 Week(s) 4 Day(s) : 6 Para: 0 Hx # Term Pregnancies: 0 Number of Pregnancies: 0 Spontaneous Abortions: 5 Induced : 0 Number of Living Children: 0 Medications and Allergies Allergies Allergy/AdvReac Type Severity Reaction Status Date / Time No Known Allergies Allergy Verified 06/10/17 11:32 Home Medications Medication Instructions Recorded Confirmed Last Taken Type methOCARBAMOL [Robaxin TAB] 500 mg PO BID #14 tab 06/06/15 Unknown Rx Gabapentin 100 mg PO Q8HR #30 capsule 06/10/17 Unknown Rx methylPREDNISolone [Medrol] 4 mg PO QAM #1 tab.ds.pk 06/10/17 Unknown Rx Acetaminophen [Acetaminophen TAB] 500 mg PO Q4HR PRN #30 tablet 09/01/19 Unknown Rx Promethazine [Phenergan] 25 mg PO Q6HR PRN #24 tab 09/01/19 Unknown Rx Acetaminophen [Non-Aspirin Extra 1 - 2 tab PO Q6HR PRN #20 tablet 05/30/20 Unknown Rx Strength] Active Meds: Active Medications Acetaminophen (Tylenol) 650 mg PO Q4H PRN PRN Reason: Pain MILD(1-3)/Fever >100.5/LOBO Diphenhydramine HCl (Benadryl) 25 mg PO Q6H PRN PRN Reason: Itching Docusate Sodium (Colace) 100 mg PO Q12H PRN PRN Reason: Constipation Lactated Ringer's (Lactated Ringers) 1,000 mls @ 125 mls/hr IV DIRECT [facility] Last Admin: 09/07/20 00:22 Dose: 125 mls/hr Documented by: Metronidazole (Vandazole) 1 applicator VG QHS [facility] Last Admin: 09/07/20 09:32 Dose: 1 applicator Documented by: Multivitamins/Iron/Calcium ( Vitamin) 1 each PO QDAY [facility] Nifedipine (Procardia*For Tocolysis Only*) 10 mg PO TID [facility] Last Admin: 09/07/20 08:54 Dose: 10 mg Documented by: Ondansetron HCl (Zofran) 4 mg IV Q6H PRN PRN Reason: Nausea And Vomiting Simethicone (Mylicon) 80 mg PO Q6H PRN PRN Reason: Gas pain Sodium Chloride (Deep Sea) 2 spray NS Q4H PRN PRN Reason: Congestion Review of Systems All systems: negative - Vital Signs Vital signs: Vital Signs Pulse BP Pulse Ox 125 H 127/67 100 09/06/20 19:43 09/06/20 19:43 09/06/20 19:43 Temp Pulse Resp BP Pulse Ox 98.1 F 120 H 16 112/71 100 09/07/20 07:33 09/07/20 09:23 09/07/20 07:33 09/07/20 07:33 09/07/20 09:23 - Physical Exam Breasts: Positive: deferred Abdomen: Positive: soft (gravid, obese). Negative: tenderness Genitourinary (Female): Positive: normal external genitalia Uterus: Positive: enlarged (gravid ) Extremities: Positive: normal - Obstetrical FHR: auscultation normal Uterine Contraction Monitor Mode: External Cervical Dilatation: 0 Uterine Contraction Pattern: Absent Uterine Tone Measurement Phase: Resting Results Result Diagrams: 09/07/20 00:24 Abnormal lab results 09/07/20 Range/Units 00:24 WBC 16.3 H (4.5-11.0) K/mm3 MCH 26 L (28-32) pg Lymph % (Auto) 8.4 L (13.4-35.0) % Seg Neutrophils % 87.5 H (40.0-70.0) % Seg Neutrophils # 14.3 H (1.8-7.7) K/mm3 All other labs normal. Assessment and Plan A: IUP at 32w4d BPP 8/10 contractions without cervical guide changer 12 hours of observation Morbid obesity Multiple prior miscarriages, First trimester bleeding with subchorionic hemorrhage Glucose intolerance Genital herpes without lesion or prodrome Partner HIV positive (pt HIV negative 09/06/20) Sciatica Sickle cell trait Subclinical hyperthyroidism GBS status unknown P: Plan to discharge patient home today on Procardia tocolysis with precautions and follow up as scheduled on with primary OB and Tue with MFM.
--- NOTE | 2020-09-07 14:00 | Short Stay Summary ---
Short Stay Documentation Date of service: 09/07/20 - History H&P: dictated Social history: no significant social history - Allergies and Medications Current Medications: Allergies No Known Allergies Allergy (Verified 06/10/17 11:32) Home Medications Medication Instructions Recorded Confirmed Last Taken Type methOCARBAMOL [Robaxin TAB] 500 mg PO BID #14 tab 06/06/15 Unknown Rx Gabapentin 100 mg PO Q8HR #30 capsule 06/10/17 Unknown Rx methylPREDNISolone [Medrol] 4 mg PO QAM #1 tab.ds.pk 06/10/17 Unknown Rx Acetaminophen [Acetaminophen TAB] 500 mg PO Q4HR PRN #30 tablet 09/01/19 Unknown Rx Promethazine [Phenergan] 25 mg PO Q6HR PRN #24 tab 09/01/19 Unknown Rx Acetaminophen [Non-Aspirin Extra 1 - 2 tab PO Q6HR PRN #20 tablet 05/30/20 Unknown Rx Strength] Active Medications Acetaminophen (Tylenol) 650 mg PO Q4H PRN PRN Reason: Pain MILD(1-3)/Fever >100.5/LOBO Diphenhydramine HCl (Benadryl) 25 mg PO Q6H PRN PRN Reason: Itching Docusate Sodium (Colace) 100 mg PO Q12H PRN PRN Reason: Constipation Lactated Ringer's (Lactated Ringers) 1,000 mls @ 125 mls/hr IV DIRECT [facility] Last Admin: 09/07/20 00:22 Dose: 125 mls/hr Documented by: Metronidazole (Vandazole) 1 applicator VG QHS [facility] Last Admin: 09/07/20 09:32 Dose: 1 applicator Documented by: Multivitamins/Iron/Calcium ( Vitamin) 1 each PO QDAY [facility] Nifedipine (Procardia*For Tocolysis Only*) 10 mg PO TID [facility] Last Admin: 09/07/20 08:54 Dose: 10 mg Documented by: Ondansetron HCl (Zofran) 4 mg IV Q6H PRN PRN Reason: Nausea And Vomiting Simethicone (Mylicon) 80 mg PO Q6H PRN PRN Reason: Gas pain Sodium Chloride (Deep Sea) 2 spray NS Q4H PRN PRN Reason: Congestion - Physical exam Breasts: deferred - Hospital course Hospital course: Pt was admitted for contractions and observed for over 12 hours without cervical change. She was initiated on Procardia for tocolysis and did receive two dose of betamethasone. She will be discharged with precautions and will follow up in the office in 2 days. - Disposition Condition at discharge: Stable Disposition: DC-01 TO HOME OR SELFCARE - Discharge Diagnoses (1) contractions Status: Acute (2) Morbid obesity Status: Acute (3) Habitual aborter Status: Acute (4) Habitual aborter, currently in third trimester Status: Acute Short Stay Discharge Plan Activity: other (Pelvic rest until speciifed by your physicians ) Weight Bearing Status: Full Weight Bearing Diet: regular Follow up with: TOMASA MARADIAGA MD [Primary Care Provider] - 09/09/20 WILLY REYES MD [Staff Physician] - 09/10/20 Prescriptions: NIFEdipine [Procardia] 10 mg PO TID #24 capsule
[2020-09-07 17:49] VITALS: BP 116/71
== END 2020-09-07 16:45 | disposition home or self-care (01) ==
LOC: TRG 19:17 → APU 19:18 → TRG 22:17 → UNDOADMOB 23:34 → APU 23:34 → LD 09-07 00:02
PROVIDERS: ADMIT Obstetrics & Gynecology; ATTEND Obstetrics & Gynecology
DX: O62.9 Abnormality of forces of labor, unspecified (principal); Z20.828 Contact with and (suspected) exposure to other viral communicable diseases; O60.03 Preterm labor without delivery, third trimester; O99.213 Obesity complicating pregnancy, third trimester; E66.01 Morbid (severe) obesity due to excess calories; E05.90 Thyrotoxicosis, unspecified without thyrotoxic crisis or storm; O26.893 Other specified pregnancy related conditions, third trimester; M54.30 Sciatica, unspecified side; K21.9 Gastro-esophageal reflux disease without esophagitis; O26.23 Pregnancy care for patient with recurrent pregnancy loss, third trimester; Z3A.32 32 weeks gestation of pregnancy
CPT/HCPCS: 36415; 76816; 76819; 81001; 85025; 86850; 86900; 86901; 87806; 96360; 96361; 96372; G0378; J0702; J7120; U0003

== ENCOUNTER 2020-09-08 17:03 | Observation (INO) | payer OTHER ==
[2020-09-08] MEDS ORDERED: SODIUM CHLORIDE NASAL SPRAY 44ML NS PRN (17:07)
[2020-09-08] MEDS ORDERED: ONDANSETRON 4 MG/2 ML INJ IV PRN (17:07)
[2020-09-08] MEDS ORDERED: ALUM-MAG HYDROXIDE-SIMETHICONE 200-200-20MG/5ML ORAL LIQD 30 ML PO PRN (17:07)
[2020-09-08] MEDS ORDERED: SIMETHICONE 80 MG CHEW TAB PO PRN (17:07)
[2020-09-08] MEDS ORDERED: LACTATED RINGERS 500 ML IV ONE (17:07)
[2020-09-08] MEDS ORDERED: ACETAMINOPHEN 325 MG TAB PO PRN (17:07)
[2020-09-08] MEDS ORDERED: DOCUSATE SODIUM 100 MG CAP PO PRN (17:07)
--- NOTE | 2020-09-08 17:29 | History and Physical Report ---
History of Present Illness Date of examination: 09/08/20 Date of admission: 09/08/20 Chief complaint: "my baby is not moving and my back is killing me" History of present illness: Pt is a 29 year old -[place] female GIANNI 10[birth year] at 32w5d who presents complaining of back pain and pelvic pressure for the past hour. She also notes decreased movement for the past four days. She reports the baby only moves when she rubs her abdomen, "but she does not move on her own." She denies leakage of fluid or vaginal bleeding. She was evaluated in triage on 09/05/20, found to have a closed cervix but had a positive FFN. She received one dose of betamethasone on 09/05 and a dose or terbutaline and instructed to present in 24 hours for her second dose. When she presented, she complained of pelvic pain and was found to be [place] every 6 -10 minutes so she was admitted for observation. She received her second dose of betamethasone on 09/06/20 and was observed for 14 hours, started on Procardia tocolysis 10 mg PO TID and metrogel for known bacterial vaginosis. After over 12 hours of observation, the patient reported no further contractions and had a BPP 8/10 (-2 for breathing) and met discharge criteria. Today the patient reports that her baby's movement has been abnormal since 09/05/20. She was tested for coronavirus on 09/07/20 with a negative result. Pt has not yet filled Procardia prescription given to her yesterday. 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 Her GBS status is unknown. 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 Family/Genetic History: hypertension Social history: no significant social history - Obstetrical History Expected Date of Delivery: 10/29/20 Actual Gestation: 32 Week(s) 5 Day(s) : 6 Para: 0 Hx # Term Pregnancies: 0 Number of Pregnancies: 0 Spontaneous Abortions: 5 Induced : 0 Number of Living Children: 0 Medications and Allergies Allergies Allergy/AdvReac Type Severity Reaction Status Date / Time No Known Allergies Allergy Verified 06/10/17 11:32 Home Medications Medication Instructions Recorded Confirmed Last Taken Type methOCARBAMOL [Robaxin TAB] 500 mg PO BID #14 tab 06/06/15 Unknown Rx Gabapentin 100 mg PO Q8HR #30 capsule 06/10/17 Unknown Rx methylPREDNISolone [Medrol] 4 mg PO QAM #1 tab.ds.pk 06/10/17 Unknown Rx Acetaminophen [Acetaminophen TAB] 500 mg PO Q4HR PRN #30 tablet 09/01/19 Unknown Rx Promethazine [Phenergan] 25 mg PO Q6HR PRN #24 tab 09/01/19 Unknown Rx Acetaminophen [Non-Aspirin Extra 1 - 2 tab PO Q6HR PRN #20 tablet 05/30/20 Un known Rx Strength] NIFEdipine [Procardia] 10 mg PO TID #24 capsule 09/07/20 Unknown Rx Active Meds: Active Medications Acetaminophen (Tylenol) 650 mg PO Q4H PRN PRN Reason: Pain MILD(1-3)/Fever >100.5/LOBO Al Hydrox/Mg Hydrox/Simethicone (Alum-Mag Hydrox-Simeth 250-356-02pt/5ml) 30 ml PO Q6H PRN PRN Reason: Indigestion Docusate Sodium (Colace) 100 mg PO Q12H PRN PRN Reason: Constipation Lactated Ringer's (Lactated Ringers) 500 mls @ 999 mls/hr IV BOLUS ONE Stop: 09/08/20 17:37 Lactated Ringer's (Lactated Ringers) 1,000 mls @ 125 mls/hr IV DIRECT [facility] Multivitamins/Iron/Calcium ( Vitamin) 1 each PO QDAY [facility] Ondansetron HCl (Zofran) 4 mg IV Q6H PRN PRN Reason: Nausea And Vomiting Simethicone (Mylicon) 80 mg PO Q6H PRN PRN Reason: Gas pain Sodium Chloride (Deep Sea) 2 spray NS Q4H PRN PRN Reason: Congestion Review of Systems All systems: negative - Physical Exam Breasts: Positive: deferred Abdomen: Positive: soft (obese, gravid ) Uterus: Positive: enlarged (gravid ) Extremities: Positive: normal - Obstetrical FHR: category 2 Uterine Contraction Monitor Mode: External Results All other labs normal. Assessment and Plan A: IUP at 32w5d Decreased Movement- persistent Morbid Obesity Glucose Intolerance Genital Herpes without lesion or prodrome HIV Discordance with partner (09/07/20 Negative) Sciatica Sickle Cell Trait Subclinical Hyperthyroidism Multiple Miscarriages P: Admit for observation BPP Procardia TID Closely monitor maternal and status
[2020-09-08] MEDS ORDERED: LACTATED RINGERS 1,000 ML IV SCH (18:00)
[2020-09-08 19:24] LABS: Hematocrit 33.6 % (30.3-42.9); Mean Corpuscular HGB Conc 33 % (30-34); Mean Corpuscular Volume 82 fl (79-97); Platelet Count 337 K/mm3 (140-440); Red Blood Count 4.08 M/mm3 (3.65-5.03); Red Cell Distribution Width 15.4 % (13.2-15.2)
[2020-09-08 19:52] LABS: BUN/Creatinine Ratio 15; Blood Urea Nitrogen 9 mg/dL (7-17)
[2020-09-08 19:53] LABS: Alanine Aminotransferase 16 units/L (7-56); Albumin 3.5 g/dL (3.9-5)
[2020-09-08 20:36] LABS: Free T4 (Free Thyroxine) 1.04 ng/dL (0.76-1.46)
[2020-09-08 22:08] LABS: Basophils % (Manual) 0 % (0.0-1.8); Eosinophils % (Manual) 0 % (0.0-4.3); Total Cells Counted 100
[2020-09-08 22:25] LABS: Platelet Estimate Consistent w Auto; RBC Morphology Normal
--- NOTE | 2020-09-08 22:35 | Ultrasound Report ---
ULTRASOUND OBSTETRIC LIMITED ULTRASOUND BIOPHYSICAL PROFILE INDICATION / CLINICAL INFORMATION: IUP at 32 wks, Decreased movement. COMPARISON: 09/07/2020 FINDINGS: BREATHING MOVEMENT = 0 GROSS BODY MOVEMENT = 2 TONE = 2 QUALITATIVE AMNIOTIC FLUID VOLUME = 2 TOTAL BIOPHYSICAL SCORE = 6/8 HEART RATE (beats per minute): 140 ADDITIONAL FINDINGS: None. IMPRESSION: 1. Biophysical Score = 6/8 Signer Name: Gideon Patterson MD Signed: 09/08/2020 10:30 PM Workstation Name: [employer]
[2020-09-09 07:20] VITALS: BP 124/70
--- NOTE | 2020-09-09 07:57 | Progress Note ---
Assessment and Plan - Patient Problems (1) Decreased movement Current Visit: Yes Status: Acute Plan to address problem: Clinical improvement and monitoring Discharge home (2) contractions Current Visit: No Status: Acute Subjective - Subjective Date of service: 09/09/20 Interval history: Patient admitted yesterday for decreased movement. She had a biophysical profile of 6 out of 8. The patient was admitted for prolonged observation. Today the tracing is category 1 with appropriate accelerations. No contractions are noted. The patient denies contractions today. She reports improvement in the movement. Patient reports: no new complaints Objective - Vital Signs Vital Signs: Vital Signs - 12hr 09/09/20 09/09/20 09/09/20 05:50 05:51 05:56 Temperature Pulse Rate 98 H 104 H 100 H Respiratory Rate Blood Pressure 123/73 O2 Sat by Pulse 100 100 Oximetry 09/09/20 09/09/20 09/09/20 06:01 06:06 06:11 Temperature Pulse Rate 116 H 99 H 93 H Respiratory Rate Blood Pressure O2 Sat by Pulse 98 100 99 Oximetry 09/09/20 09/09/20 09/09/20 06:16 06:21 06:26 Temperature Pulse Rate 97 H 97 H 97 H Respiratory Rate Blood Pressure O2 Sat by Pulse 100 100 100 Oximetry 09/09/20 09/09/20 09/09/20 06:31 06:36 06:41 Temperature Pulse Rate 95 H 95 H 94 H Respiratory Rate Blood Pressure O2 Sat by Pulse 99 99 100 Oximetry 09/09/20 09/09/20 09/09/20 06:46 06:51 06:56 Temperature Pulse Rate 95 H 95 H 91 H Respiratory Rate Blood Pressure O2 Sat by Pulse 99 100 100 Oximetry 09/09/20 09/09/20 09/09/20 07:01 07:06 07:11 Temperature Pulse Rate 98 H 98 H 93 H Respiratory Rate Blood Pressure O2 Sat by Pulse 100 100 99 Oximetry 09/09/20 09/09/20 09/09/20 07:16 07:19 07:21 Temperature Pulse Rate 97 H 98 H 104 H Respiratory Rate Blood Pressure 124/70 O2 Sat by Pulse 100 100 Oximetry 09/09/20 09/09/20 09/09/20 07:26 07:30 07:31 Temperature 97.8 F Pulse Rate 98 H 97 H Respiratory 20 Rate Blood Pressure O2 Sat by Pulse 99 99 Oximetry 09/09/20 07:36 Temperature Pulse Rate 98 H Respiratory Rate Blood Pressure O2 Sat by Pulse 100 Oximetry - Labs Labs: Abnormal Labs 09/08/20 09/08/20 18:58 18:58 WBC 14.9 H MCH 27 L RDW 15.4 H Seg Neuts % (Manual) 80.0 H Lymphocytes % (Manual) 12.0 L Monocytes % (Manual) 8.0 H Seg Neutrophils # Man 11.9 H Monocytes # (Manual) 1.2 H Albumin 3.5 L Laboratory Results - last 24 hr 09/08/20 09/08/20 09/08/20 18:58 18:58 18:58 WBC 14.9 H RBC 4.08 Hgb 11.0 Hct 33.6 MCV 82 MCH 27 L MCHC 33 RDW 15.4 H Plt Count 337 Add Manual Diff Complete Total Counted 100 Seg Neuts % (Manual) 80.0 H Band Neutrophils % 0 Lymphocytes % (Manual) 12.0 L Reactive Lymphs % (Man) 0 Monocytes % (Manual) 8.0 H Eosinophils % (Manual) 0 Basophils % (Manual) 0 Metamyelocytes % 0 Myelocytes % 0 Promyelocytes % 0 Blast Cells % 0 Nucleated RBC % Not Reportable Seg Neutrophils # Man 11.9 H Band Neutrophils # 0.0 Lymphocytes # (Manual) 1.8 Abs React Lymphs (Man) 0.0 Monocytes # (Manual) 1.2 H Eosinophils # (Manual) 0.0 Basophils # (Manual) 0.0 Metamyelocytes # 0.0 Myelocytes # 0.0 Promyelocytes # 0.0 Blast Cells # 0.0 WBC Morphology Not Reportable Hypersegmented Neuts Not Reportable Hyposegmented Neuts Not Reportable Hypogranular Neuts Not Reportable Smudge Cells Not Reportable Toxic Granulation Not Reportable Toxic Vacuolation Not Reportable Dohle Bodies Not Reportable Pelger-Huet Anomaly Not Reportable Jatin Rods Not Reportable Platelet Estimate Consistent w auto Clumped Platelets Not Reportable Plt Clumps, EDTA Not Reportable Large Platelets Not Reportable Giant Platelets Not Reportable Platelet Satelliting Not Reportable Plt Morphology Comment Not Reportable RBC Morphology Normal Dimorphic RBCs Not Reportable Polychromasia Not Reportable Hypochromasia Not Reportable Poikilocytosis Not Reportable Anisocytosis Not Reportable Microcytosis Not Reportable Macrocytosis Not Reportable Spherocytes Not Reportable Pappenheimer Bodies Not Reportable Sickle Cells Not Reportable Target Cells Not Reportable Tear Drop Cells Not Reportable Ovalocytes Not Reportable Helmet Cells Not Reportable [place] Bodies Not Reportable [place] Rings Not Reportable Alena Cells Not Reportable Bite Cells Not Reportable Crenated Cell Not Reportable Elliptocytes Not Reportable Acanthocytes (Spur) Not Reportable Rouleaux Not Reportable Hemoglobin C Crystals Not Reportable Schistocytes Not Reportable Malaria parasites Not Reportable Drake Bodies Not Reportable Hem Pathologist Commnt No Sodium 139 Potassium 3.9 Chloride 105.3 Carbon Dioxide 23 Anion Gap 15 BUN 9 Creatinine 0.6 Estimated GFR > 60 BUN/Creatinine Ratio 15 Glucose 80 Calcium 9.0 Total Bilirubin 0.30 AST 18 ALT 16 Alkaline Phosphatase 122 Total Protein 6.8 Albumin 3.5 L Albumin/Globulin Ratio 1.1 TSH Free T4 Blood Type B POSITIVE Antibody Screen Negative 09/08/20 18:58 WBC RBC Hgb Hct MCV MCH MCHC RDW Plt Count Add Manual Diff Total Counted Seg Neuts % (Manual) Band Neutrophils % Lymphocytes % (Manual) Reactive Lymphs % (Man) Monocytes % (Manual) Eosinophils % (Manual) Basophils % (Manual) Metamyelocytes % Myelocytes % Promyelocytes % Blast Cells % Nucleated RBC % Seg Neutrophils # Man Band Neutrophils # Lymphocytes # (Manual) Abs React Lymphs (Man) Monocytes # (Manual) Eosinophils # (Manual) Basophils # (Manual) Metamyelocytes # Myelocytes # Promyelocytes # Blast Cells # WBC Morphology Hypersegmented Neuts Hyposegmented Neuts Hypogranular Neuts Smudge Cells Toxic Granulation Toxic Vacuolation Dohle Bodies Pelger-Huet Anomaly Jatin Rods Platelet Estimate Clumped Platelets Plt Clumps, EDTA Large Platelets Giant Platelets Platelet Satelliting Plt Morphology Comment RBC Morphology Dimorphic RBCs Polychromasia Hypochromasia Poikilocytosis Anisocytosis Microcytosis Macrocytosis Spherocytes Pappenheimer Bodies Sickle Cells Target Cells Tear Drop Cells Ovalocytes Helmet Cells [place] Bodies Savona Rings Morrow Cells Bite Cells Crenated Cell Elliptocytes Acanthocytes (Spur) Rouleaux Hemoglobin C Crystals Schistocytes Malaria parasites Drake Bodies Hem Pathologist Commnt Sodium Potassium Chloride Carbon Dioxide Anion Gap BUN Creatinine Estimated GFR BUN/Creatinine Ratio Glucose Calcium Total Bilirubin AST ALT Alkaline Phosphatase Total Protein Albumin Albumin/Globulin Ratio TSH 2.040 Free T4 1.04 Blood Type Antibody Screen
--- NOTE | 2020-09-09 07:58 | Discharge Summary ---
Providers - Providers Date of Admission: 09/08/20 17:30 Date of discharge: 09/09/20 Attending physician: ANTIONE NGUYỄN Primary care physician: TOMASA MARADIAGA Hospitalization Reason for admission: other (Decreased movement of contractions) Discharge diagnosis: other (Decreased movement and contractions) Hospital course: The patient was admitted for prolonged observation with improvement in her tracing and resolution of her contractions. Condition at discharge: Good Disposition: DC-01 TO HOME OR SELFCARE - Discharge Diagnoses (1) Decreased movement Status: Acute (2) contractions Status: Acute Plan - Provider Discharge Summary Activity: no heavy lifting 4 weeks, no strenuous exercise Diet: routine Instructions: routine Additional instructions: [] Smoking cessation referral if applicable(refer to patient education folder for contact #) [] Refer to [facility] Booklet Call your doctor immediately for: * Fever > 100.5 * Heavy vaginal bleeding ( >1 pad per hour) * Severe persistent headache * Shortness of breath * Reddened, hot, painful area to leg or breast * Drainage or odor from incision. * Keep incision clean and dry at all times and follow doctor's instructions regarding bathing/showering - Follow up plan Follow up: TOMASA MARADIAGA MD [Primary Care Provider] - 7 Days
[2020-09-09] MEDS ORDERED: PRENATAL VIT27-FE FUMARATE-FOLIC ACID VIT TAB PO SCH (10:00)
== END 2020-09-09 08:40 | disposition home or self-care (01) ==
LOC: TRG 17:03 → LD 17:06 → TRG 17:29 → LD 17:30
PROVIDERS: ADMIT Obstetrics & Gynecology; ATTEND Obstetrics & Gynecology
DX: O36.8130 Decreased fetal movements, third trimester, not applicable or unspecified (principal); O99.213 Obesity complicating pregnancy, third trimester; E66.01 Morbid (severe) obesity due to excess calories; O26.893 Other specified pregnancy related conditions, third trimester; O60.03 Preterm labor without delivery, third trimester; M54.30 Sciatica, unspecified side; E05.90 Thyrotoxicosis, unspecified without thyrotoxic crisis or storm; K21.9 Gastro-esophageal reflux disease without esophagitis; Z3A.32 32 weeks gestation of pregnancy
CPT/HCPCS: 36415; 76819; 80053; 84439; 84443; 85025; 86850; 86900; 86901; G0378; 85007

== ENCOUNTER 2020-10-02 14:39 | Outpatient (CLI) | payer OTHER ==
[2020-10-02 15:09] VITALS: BP 129/80
[2020-10-02 16:12] LABS: Bacteria,Urine 1+ /HPF (Negative); Bilirubin,Urine NEG (Negative); Blood,Urine NEG (Negative); Color,Urine Yellow (Yellow); Mucus,Urine FEW /HPF; Protein,Urine <15 mg/dL mg/dL (Negative); Urobilinogen,Urine < 2.0 mg/dL (<2.0)
[2020-10-02] MEDS ORDERED: LACTATED RINGERS 1,000 ML IV SCH (16:15)
[2020-10-02] MEDS ORDERED: cefTRIAXone/NS 2 GM/100 ML 2 GM/100 ML BAG IV ONE (17:00)
[2020-10-02] MEDS ORDERED: LIDOCAINE-MPF (1%) 10 MG/1 ML VIAL 5 ML INFILTRATI ONE (17:23)
== END 2020-10-02 19:35 | disposition home or self-care (01) ==
LOC: TRG 14:39 → APU 14:41 → TRG 19:35
PROVIDERS: ATTEND Obstetrics & Gynecology
DX: O42.913 Preterm premature rupture of membranes, unspecified as to length of time between rupture and onset of labor, third trimester (principal); O47.03 False labor before 37 completed weeks of gestation, third trimester; O99.323 Drug use complicating pregnancy, third trimester; F12.90 Cannabis use, unspecified, uncomplicated; Z3A.36 36 weeks gestation of pregnancy
CPT/HCPCS: 59025; 81001; 87086; 96361; 96365; J0696; J7120; 96360

== ENCOUNTER 2020-10-06 13:29 | Inpatient (IN) | payer OTHER ==
[2020-10-06] MEDS ORDERED: LACTATED RINGERS 500 ML IV ONE (15:43)
--- NOTE | 2020-10-06 17:21 | Ultrasound Report ---
US OB limited, US OB BPP wo non-stress INDICATION: ARJUN. TECHNIQUE: Transabdominal. COMPARISON: None available. FINDINGS: There is a single intrauterine . Heart Rate: 140 beats per minute. Position: cephalic. Amniotic Fluid Volume: normal Amniotic Fluid Index (ARJUN) in cm (if calculated): 16.6. Biophysical Profile: breathing movements: 2 movements:2 posture and tone:2 Qualitative amniotic fluid volume: 2 IMPRESSION: 1. Amniotic fluid is normal. 2. Normal biophysical profile. Signer Name: Jaden Rose MD Signed: 10/06/2020 5:16 PM Workstation Name: [id number]
[2020-10-06] MEDS ORDERED: diphenhydrAMINE 25 MG CAP PO PRN (18:57)
[2020-10-06] MEDS ORDERED: LIDOCAINE (2%) 20 MG/1 ML VIAL 20 ML MDV INFILTRATI ONE (18:57)
[2020-10-06] MEDS ORDERED: SODIUM CHLORIDE NASAL SPRAY 44ML NS PRN (18:57)
[2020-10-06] MEDS ORDERED: ACETAMINOPHEN 325 MG TAB PO PRN ×2 (18:57)
[2020-10-06] MEDS ORDERED: SIMETHICONE 80 MG CHEW TAB PO PRN (18:57)
[2020-10-06] MEDS ORDERED: DOCUSATE SODIUM 100 MG CAP PO PRN (18:57)
[2020-10-06] MEDS ORDERED: ePHEDrine SULFATE 50 MG/1 ML INJ IV PRN (18:57)
[2020-10-06] MEDS ORDERED: TERBUTALINE 1 MG/1 ML INJ SUB-Q PRN (18:57)
[2020-10-06] MEDS ORDERED: ONDANSETRON 4 MG/2 ML INJ IV PRN (18:57)
[2020-10-06] MEDS ORDERED: MINERAL OIL 30 ML ORAL LIQD PO PRN (18:57)
[2020-10-06] MEDS ORDERED: NALOXONE 0.4 MG/1 ML INJ IV PRN (18:57)
[2020-10-06] MEDS ORDERED: BUTORPHANOL 2 MG/1 ML INJ IV PRN (18:57)
[2020-10-06] MEDS ORDERED: OXYTOCIN DRIP 30 UNITS/500 ML BAG IV SCH (19:00)
[2020-10-06] MEDS ORDERED: LACTATED RINGERS 1,000 ML IV SCH ×2 (19:00)
[2020-10-06] MEDS: fentaNYL 100 MCG/2 ML INJ IV PRN ×2 (19:32→23:52)
[2020-10-06 19:48] LABS: Basophils # (Auto) 0.1 K/mm3 (0.0-0.1); Basophils % (Auto) 0.4 % (0.0-1.8); Eosinophils # (Auto) 0.1 K/mm3 (0.0-0.4); Eosinophils % (Auto) 0.6 % (0.0-4.3); Hematocrit 36.9 % (30.3-42.9); Lymphocytes # (Auto) 1.6 K/mm3 (1.2-5.4); Mean Corpuscular HGB Conc 33 % (30-34); Mean Corpuscular Volume 80 fl (79-97); Monocytes % (Auto) 5.5 % (0.0-7.3); Platelet Count 309 K/mm3 (140-440); Red Blood Count 4.64 M/mm3 (3.65-5.03)
[2020-10-06] MEDS ORDERED: valACYclovir 500 MG TAB PO SCH (20:00)
[2020-10-06] MEDS ORDERED: ONDANSETRON 4 MG/2 ML INJ IV ONE (20:31)
--- NOTE | 2020-10-06 20:37 | History and Physical Report ---
History of Present Illness Date of examination: 10/06/20 Chief complaint: contractions History of present illness: Pt is a 29 year old -Welsh GIANNI 10/29/20 at 36w5d who presents with regular painful contractions q 4-5 minutes and cervical change from 1 to 2 cm while in triage. She denies vaginal bleeding but does report mucoid discharge. She has had care at [facility] with comanagement by MFM secondary to morbid obesity, first trimester bleeding, glucose intolerance, genital herpes without lesion or prodrome, partner who is HIV positive, contractions and short cervix s/p betamethasone on 09/05 and 09/06, sciatica, sickle cell trait, and subclinical hyperthyroidism. She is GBS negative. On the most recent MFM scan, one loop of dilated bowel was noted. Past History Past Medical History: other (Sciatica ) Past Surgical History: no surgical history [employer]ICER History: herpes Family/Genetic History: hypertension Social history: no significant social history - Obstetrical History Expected Date of Delivery: 10/29/20 Actual Gestation: 36 Week(s) 5 Day(s) : 6 Para: 0 Hx # Term Pregnancies: 0 Number of Pregnancies: 0 Spontaneous Abortions: 5 Induced : 0 Number of Living Children: 0 Medications and Allergies Allergies Allergy/AdvReac Type Severity Reaction Status Date / Time No Known Allergies Allergy Verified 06/10/17 11:32 Home Medications Medication Instructions Recorded Confirmed Last Taken Type methOCARBAMOL [Robaxin TAB] 500 mg PO BID #14 tab 06/06/15 Unknown Rx Gabapentin 100 mg PO Q8HR #30 capsule 06/10/17 Unknown Rx methylPREDNISolone [Medrol] 4 mg PO QAM #1 tab.ds.pk 06/10/17 Unknown Rx Acetaminophen [Acetaminophen TAB] 500 mg PO Q4HR PRN #30 tablet 09/01/19 Unknown Rx Promethazine [Phenergan] 25 mg PO Q6HR PRN #24 tab 09/01/19 Unknown Rx Acetaminophen [Non-Aspirin Extra 1 - 2 tab PO Q6HR PRN #20 tablet 05/30/20 Un known Rx Strength] NIFEdipine [Procardia] 10 mg PO TID #24 capsule 09/07/20 Unknown Rx Active Meds: Active Medications Acetaminophen (Acetaminophen 325 Mg Tab) 650 mg PO Q4H PRN PRN Reason: Pain MILD(1-3)/Fever >100.5/LOBO Butorphanol Tartrate (Butorphanol 2 Mg/1 Ml Inj) 2 mg IV Q2H PRN PRN Reason: Pain , Severe (7-10) Diphenhydramine HCl (Diphenhydramine 25 Mg Cap) 25 mg PO Q6H PRN PRN Reason: Itching Docusate Sodium (Docusate Sodium 100 Mg Cap) 100 mg PO Q12H PRN PRN Reason: Constipation Ephedrine Sulfate (Ephedrine Sulfate 50 Mg/1 Ml Inj) 10 mg IV Q2M PRN PRN Reason: Hypotension Fentanyl (Fentanyl 100 Mcg/2 Ml Inj) 100 mcg IV Q2H PRN PRN Reason: Pain,Severe (7-10) LABOR PAIN Last Admin: 10/06/20 19:32 Dose: 100 mcg Documented by: Oxytocin/Sodium Chloride (Pitocin/Ns 30 Unit/500ml) 30 units in 500 mls @ 2 mls/hr IV TITR TWILA; Protocol Lactated Ringer's (Lactated Ringers) 1,000 mls @ 125 mls/hr IV DIRECT TWILA Last Admin: 10/06/20 19:32 Dose: 125 mls/hr Documented by: Lactated Ringer's (Lactated Ringers) 1,000 mls @ 125 mls/hr IV DIRECT TWILA Mineral Oil (Mineral Oil 30 Ml Oral Liqd) 30 ml PO QHS PRN PRN Reason: Constipation Multivitamins/Iron/Calcium ( Evj80-Fu Fumarate-Folic Acid Vit Tab) 1 each PO QDAY TWILA Naloxone HCl (Naloxone 0.4 Mg/1 Ml Inj) 0.1 mg IV Q2MIN PRN PRN Reason: Res Rate </= 8 or 02 SAT < 92% Ondansetron HCl (Ondansetron 4 Mg/2 Ml Inj) 4 mg IV Q8H PRN PRN Reason: Nausea And Vomiting Simethicone (Simethicone 80 Mg Chew Tab) 80 mg PO Q6H PRN PRN Reason: Gas pain Sodium Chloride (Sodium Chloride Nasal Reform 44ml) 2 spray NS Q4H PRN PRN Reason: Congestion Terbutaline Sulfate (Terbutaline 1 Mg/1 Ml Inj) 0.25 mg SUB-Q ONCE PRN PRN Reason: Hyperstimulation/Hypertonicity Valacyclovir HCl (Valacyclovir 500 Mg Tab) 1,000 mg PO QDAY TWILA Review of Systems All systems: negative - Vital Signs Vital signs: Vital Signs Pulse BP 100 H 130/77 10/06/20 14:36 10/06/20 14:36 Temp Pulse Resp BP Pulse Ox 98.8 F 100 H 20 130/77 10/06/20 14:42 10/06/20 14:36 10/06/20 14:42 10/06/20 14:36 - Physical Exam Breasts: Positive: deferred Abdomen: Positive: soft (obese, gravid ) Uterus: Positive: enlarged (gravid ) Extremities: Positive: edema (trace ) - Obstetrical FHR: category 2 Uterine Contraction Monitor Mode: External Cervical Dilatation: 2 (per RN ) Uterine Contraction Pattern: Regular Uterine Tone Measurement Phase: Resting Uterine Contraction Intensity: Moderate Results Result Diagrams: 10/06/20 19:00 Abnormal lab results 10/06/20 Range/Units 19:00 WBC 17.4 H (4.5-11.0) K/mm3 MCH 26 L (28-32) pg RDW 16.0 H (13.2-15.2) % Lymph % (Auto) 9.0 L (13.4-35.0) % Dukes # (Auto) 1.0 H (0.0-0.8) K/mm3 Seg Neutrophils % 84.5 H (40.0-70.0) % Seg Neutrophils # 14.7 H (1.8-7.7) K/mm3 All other labs normal. Assessment and Plan A: IUP at 36w5d labor- latent Morbid Obesity Glucose intolerance Genital herpes without lesion or prodrome Partner who is HIV positive contractions this s/p betamethasone on 09/05 and 09/06 Sciatica Sickle cell trait Subclinical hyperthyroidism GBS negative P: Admit to antepartum service for observation Monitor for cervical change Closely monitor maternal and status
[2020-10-07] MEDS: fentaNYL 100 MCG/2 ML INJ IV PRN (04:08)
--- NOTE | 2020-10-07 07:45 | Anesthesia Consultation ---
Anesthesia Consult and Med Hx Date of service: 10/07/20 - Airway Anesthetic Teeth Evaluation: Good ROM Head & Neck: Adequate Mental/Hyoid Distance: Adequate Mallampati Class: Class II Intubation Access Assessment: Good - Pulmonary Exam CTA: Yes - Cardiac Exam Cardiac Exam: RRR - Pre-Operative Health Status ASA Pre-Surgery Classification: ASA2 Proposed Anesthetic Plan: Epidural - Pulmonary Hx Smoking: No Hx Asthma: No Hx Respiratory Symptoms: No SOB: No COPD: No Home Oxygen Therapy: No Hx Pneumonia: No Hx Sleep Apnea: No - Cardiovascular System Hx Hypertension: No Hx Coronary Artery Disease: No Hx Heart Attack/AMI: No Hx Angina: No Hx Percutaneous Transluminal Coronary Angioplasty (PTCA): No Hx Cardia Arrhythmia: No Hx Pacemaker: No Hx Internal Defibrillator: No Hx Valvular Heart Disease: No Hx Heart Murmur: No Hx Peripheral Vascular Disease: No - Central Nervous System Hx Neuromuscular Disorder: No Hx Seizures: No CVA: No Hx Back Pain: No Hx Psychiatric Problems: No - Gastrointestinal Hx Ulcer: No Hx Gastroesophageal Reflux Disease: Yes - Endocrine Hx Renal Disease: No Hx End Stage Renal Disease: No Hx Cirrhosis: No Hx Liver Disease: No Hx Insulin Dependent Diabetes: No Hx Non-Insulin Dependent Diabetes: No Hx Thyroid Disease: No Hx Hypothyroidism: No Hx Hyperthyroidism: No - Hematic Hx Anemia: No Hx Sickle Cell Disease: Yes (trait) - Other Systems Hx Alcohol Use: No Hx Substance Use: No Hx Cancer: No Hx Obesity: Yes
[2020-10-07] MEDS ORDERED: ePHEDrine SULFATE 50 MG/1 ML INJ IV PRN (07:46)
[2020-10-07] MEDS ORDERED: NALOXONE 2 MG/2 ML INJ IV PRN (07:46)
[2020-10-07] MEDS ORDERED: fentaNYL-BUPIV 2 MCG/ML-0.125% 200 MCG/100 ML BAG EPIDURAL SCH (08:00)
--- NOTE | 2020-10-07 08:38 | Event Note ---
Date: 10/07/20 Pt now comfortable with epidural. Category II tracing. SVE: /-3. AROM- meconium stained fluid. IUPC placed. Begin pitocin augmentation. Closely monitor maternal and status.
[2020-10-07] MEDS ORDERED: miSOPROStol 200 MCG TAB PR PRN (08:39)
[2020-10-07] MEDS ORDERED: LIDOCAINE (2%) 20 MG/1 ML VIAL 20 ML MDV INFILTRATI ONE (08:39)
[2020-10-07] MEDS ORDERED: METHYLERGONOVINE MALEATE 0.2 MG/ML VIAL IM PRN (08:39)
[2020-10-07] MEDS ORDERED: MINERAL OIL 30 ML ORAL LIQD PO PRN (08:39)
[2020-10-07] MEDS ORDERED: TERBUTALINE 1 MG/1 ML INJ SUB-Q PRN (08:39)
[2020-10-07] MEDS ORDERED: LACTATED RINGERS 1,000 ML IV SCH ×2 (08:45→13:15)
[2020-10-07] MEDS ORDERED: OXYTOCIN DRIP 30 UNITS/500 ML BAG IV SCH ×4 (09:00→17:01)
[2020-10-07] MEDS ORDERED: PRENATAL VIT27-FE FUMARATE-FOLIC ACID VIT TAB PO SCH (10:00)
[2020-10-07] MEDS ORDERED: METOCLOPRAMIDE 10 MG/2 ML INJ ONE (12:59)
[2020-10-07] MEDS ORDERED: ceFAZolin/Water 2 GM/20 ML 2 GM/20 ML SYRINGE IV ONE (12:59)
[2020-10-07] MEDS ORDERED: BICITRA ORAL LIQD 30ML ONE (12:59)
[2020-10-07] MEDS ORDERED: FAMOTIDINE 20 MG/2 ML INJ IV ONE ×2 (12:59→13:14)
[2020-10-07] MEDS ORDERED: BICITRA ORAL LIQD 30ML PO ONE (13:14)
[2020-10-07] MEDS ORDERED: METOCLOPRAMIDE 10 MG/2 ML INJ IV ONE (13:14)
[2020-10-07] MEDS ORDERED: LIDOCAINE MPF (2%) 20 MG/1 ML VIAL 5 ML ONE ×3 (13:30→13:53)
[2020-10-07] MEDS ORDERED: ceFAZolin/STERILE WATER 2 GM/20 ML SYRINGE IV ONE (13:30)
[2020-10-07] MEDS ORDERED: SODIUM CHLORIDE 0.9% IRR 1,500 ML BOTTLE IR ONE (13:38)
[2020-10-07] MEDS ORDERED: WATER FOR IRRIG STERILE 1,500 ML BOTTLE IR ONE (13:38)
[2020-10-07] MEDS ORDERED: OXYTOCIN 10 UNIT/1 ML INJ ONE ×2 (13:53)
[2020-10-07] MEDS ORDERED: ceFAZolin/Water 2 GM/20 ML 2 GM/20 ML SYRINGE IV NR (14:00)
[2020-10-07] MEDS ORDERED: KETOROLAC 30 MG/1 ML INJ ONE (14:09)
--- NOTE | 2020-10-07 14:27 | Operative Report ---
Operative Report Operative Report: Date of procedure: October 07, 2020 Preoperative diagnosis: 1) IUP at 36w6d 2) Labor 3) Arrest of Dilation 4) Morbid Obesity BMI 43 Postoperative diagnosis: Same Procedure: Primary low transverse section Surgeon: Matilda Nation M.D. Anesthesia: Regional Findings: 1) Viable female , Apgars 8 and 9, weight 2920 g, (6 lb 7 oz) in cephalic presentation. Thick Meconium. Occiput Posterior 2) Normal-appearing uterus ovaries and tubes Estimated blood loss: 1000 mL IV fluids:1000 mL Urine output: 200 mL, clear at the end of the procedure Drains: Wood to gravity Specimens: Placenta to pathology Complications:None. Counts correct x 3 Disposition: Stable to PACU Indication for procedure: Pt is a 29 year old -Mosoth[place] female presents in labor and progressed to 6 cm. She arrested there over 3-4 hours with adequate contractility. The decision was made to proceed with section. Operation in detail: After the risks, benefits, alternatives and complications were explained to the patient she gave informed consent for the procedure. She was subsequently taken to the operating room where regional anesthesia was noted to be adequate. She was subsequently placed in the dorsal supine position with leftward tilt and prepped and draped in a normal sterile fashion. heart tones were noted prior to incision. A timeout was performed. A Pfannenstiel skin incision was made with the knife and carried down to the layer of the fascia with the Bovie. The fascia was incised in the midline and the fascial incision was extended bilaterally with the Bovie. The fascial incision was then stretched. The rectus muscles were then in the midline and partially transected for adequate visualization. The peritoneum was then entered bluntly. The peritoneal incision was extended with good visualization of the bladder. The peritoneal incision was then stretched. An Shahriar retractor was placed. The bladder blade was then placed. The vesicouterine peritoneuam was graped with smooth pick ups and incised with Metzenbaum scissors . A bladder flap was then created digitally and the bladder blade was replaced. A transverse incision was made in the lower uterine segment with a knife and extended bilaterally with the bandage scissors. head delivered with ease, followed by shoulders and body. bulb suctioned at delivery. Cord clamped and cut. handed to NICU staff in attendance. The placenta was then delivered manually. The uterus was then exteriorized and cleared of all clots and debris. The hysterotomy was then reapproximated with 0 Vicryl in a running locked fashion. A second layer of the same suture was used in imbricating fashion. The hysterotomy was inspected and hemostasis was noted. The gutters were irrigated and cleared of all clots and debris. The hysterotomy was again inspected and noted to be hemostatic. Surgicel was placed over the hysterotomy. The Shahriar retractor was removed. The uterus was placed back into the peritoneal cavity. The peritoneum was reapproximated with 2-0 Vicryl in a running fashion incorporating the rectus muscles. Surgicel was placed over the rectus muscles. The fascia was reapproximated with 0 Vicryl in a running fashion. The subcutaneous tissue was reapproximated with 3-0 Vicryl in a running fashion. The skin was reapproximated with 4-0 Vicryl in a subcuticular fashion. The incision was then covered with steri strips and a pressure dressing. The procedure was then ended. The patient tolerated the procedure well and was taken to the PACU in stable condition. All instrument, lap, and needle counts were correct 3.
--- NOTE | 2020-10-07 14:27 | Procedure Note ---
OB Delivery Note - Delivery Date of Delivery: 10/07/20 Surgeon: TOMASA MARADIAGA Estimated blood loss: 1000cc - Section Preop diagnosis: arrest of dilation Postop diagnosis: same section procedure: section, primary low transverse Disposition: PACU Narrative: Please see operative report. - A at 1 minute: 8 at 5 minutes: 9 Gender: Female (2920g (6lb 7oz) @ 1350 pm)
--- NOTE | 2020-10-07 14:57 | Anesthesia Day of Surgery ---
Anesthesia Day of Surgery - Day of Surgery Patient Examined: Yes Patient H&P Reviewed: Yes Patient is NPO: Yes Beta Blockers: No Cardiac Clearance: No Pulmonary Clearance: No Kamari's Test: N/A
--- NOTE | 2020-10-07 14:59 | Post Anesthesia Evaluation ---
- Post Anesthesia Evaluation Patient Participated: Yes Airway Patent: Yes Stable Respiratory Function: Yes Nausea/Vomiting: No Temp > 96.8F: Yes Pain Manageable: Yes Adequeate Hydration: Yes Anesthesia Complications: No Block Receding Appropriately: Yes Patient on Ventilator: No
--- NOTE | 2020-10-07 14:59 | Progress Note ---
Labor Epidural - Labor Epidural Start Time: 07:20 Stop Time: 07:38 Performed by:: SHAI SCHRADER Procedure: Patient is requesting a laboring epidural for laboring pain. Patient IDed, H&P reviewed, all questions and concerns were answered, and consent was signed. Timeout was performed at bedside. Patient in sitting position. Sterile prep and drape was performed. 3ml of 1% lidocaine skin wheal at L[3]- L [4]. 18- gauge Tuohy epidural needle was advanced to loss of resistance with air technique 8cm. Negative CSF negative blood. Epidural catheter advanced to [12] centimeters. [negative] Aspiration [negative] test dose. Sterile dressing applied. Patient tolerated procedure.
[2020-10-07] MEDS ORDERED: NALOXONE 0.4 MG/1 ML INJ IV PRN (17:01)
[2020-10-07] MEDS ORDERED: MORPHINE 2 MG/1 ML INJ IV PRN (17:01)
[2020-10-07] MEDS ORDERED: MAGNESIUM HYDROXIDE (MOM) ORAL LIQD UDC PO PRN (17:01)
[2020-10-07] MEDS ORDERED: D5W/LACTATED RINGERS 1,000 ML IV SCH (17:01)
[2020-10-07] MEDS ORDERED: MORPHINE 4 MG/1 ML INJ IV PRN (17:01)
[2020-10-07] MEDS ORDERED: WITCH HAZEL/ GLYCERIN PAD TP PRN (17:01)
[2020-10-07] MEDS ORDERED: LANOLIN/ZINC/DIMETHICONE (LANSINOH) 7 GM TP PRN (17:01)
[2020-10-07] MEDS: ceFAZolin/NS 1 GM/50 ML 1 GM/50 ML BAG IV SCH (22:33)
[2020-10-08] MEDS: KETOROLAC 30 MG/1 ML INJ IV SCH ×2 (00:11→06:27)
[2020-10-08] MEDS ORDERED: MEASLES, MUMPS & RUBELLA 12,500 UNIT/0.5 ML VACCINE SUB-Q ONE (06:00)
[2020-10-08] MEDS ORDERED: DIPHtheria,PERTUSSIS(ACELL),TETANUS VACCINE/PF 0.5 ML VIAL IM ONE (06:00)
[2020-10-08] MEDS: ceFAZolin/NS 1 GM/50 ML 1 GM/50 ML BAG IV SCH (06:26)
[2020-10-08] MEDS ORDERED: ceFAZolin/NS 1 GM/50 ML 1 GM/50 ML BAG IV SCH (07:00)
[2020-10-08 07:54] LABS: Hematocrit 28.7 % (30.3-42.9); Hemoglobin 9.4 gm/dl (10.1-14.3)
--- NOTE | 2020-10-08 08:27 | Progress Note ---
Assessment and Plan A: POD1 s/p pLTCS Vital signs stable Awaiting H&H P: Routine care Subjective - Subjective Date of service: 10/08/20 Principal diagnosis: s/p LTCS Interval history: POD1 s/p primary LTCS for failure to progress Patient reports: appetite normal, pain well controlled, no flatus, no ambulating normally [place]: doing well, nursing well (both), bottle feeding Objective - Vital Signs Latest vital signs: Vital Signs Temp Pulse Resp BP BP Pulse Ox 10/08/20 05:15 98.3 F 106 H 19 124/63 98 10/08/20 00:30 98.7 F 112 H 19 112/61 98 10/07/20 20:45 98.5 F 105 H 19 115/70 100 10/07/20 16:45 98.4 F 92 H 18 128/79 99 10/07/20 15:41 100 H 16 132/60 100 10/07/20 15:26 99 H 16 121/78 100 10/07/20 15:11 98 H 16 119/83 100 10/07/20 14:55 91 H 15 117/68 100 10/07/20 14:50 94 H 16 106/69 100 10/07/20 14:45 94 H 15 109/57 100 10/07/20 14:41 97.8 F 95 H 16 133/59 100 10/07/20 13:05 124 H 100 10/07/20 13:00 116 H 100 10/07/20 12:55 110 H 100 10/07/20 12:52 67 94 10/07/20 12:50 110 H 100 10/07/20 12:45 108 H 100 10/07/20 12:40 109 H 99 10/07/20 12:37 107 H 103/46 10/07/20 12:35 105 H 98 10/07/20 12:30 106 H 98 10/07/20 12:25 109 H 98 10/07/20 12:20 115 H 95 10/07/20 12:17 117 H 93 10/07/20 12:15 108 H 97 10/07/20 12:13 111 H 104/51 10/07/20 12:10 108 H 98 10/07/20 12:05 111 H 98/47 97 10/07/20 12:00 115 H 97 12/15/20 11:55 108 H 97 20 11:50 114 H 97 20 11:45 108 H 95 20 11:40 107 H 96 20 11:35 108 H 96/49 95 20 11:30 109 H 97 20 11:25 116 H 98 20 11:21 115 H 94 20 11:20 114 H 96 10/07/20 11:15 124 H 95 10/07/20 11:10 113 H 97 10/07/20 11:05 119 H 96/47 97 10/07/20 11:00 112 H 97 10/07/20 10:55 115 H 97 10/07/20 10:50 114 H 98 10/07/20 10:45 115 H 97 10/07/20 10:40 114 H 97 10/07/20 10:35 113 H 109/54 97 10/07/20 10:30 115 H 97 10/07/20 10:25 113 H 97 10/07/20 10:20 118 H 96 10/07/20 10:15 114 H 97 10/07/20 10:10 115 H 97 10/07/20 10:06 115 H 114/57 10/07/20 10:05 116 H 97 10/07/20 10:00 114 H 96 10/07/20 09:55 119 H 96 10/07/20 09:50 119 H 95 10/07/20 09:45 116 H 96 15 09:40 116 H 96 10/07/20 09:35 116 H 115/58 97 10/07/20 09:30 115 H 96 20 09:25 116 H 96 20 09:20 116 H 97 1520 09:15 117 H 97 20 09:10 115 H 97 10/07/20 09:05 118 H 99 10/07/20 09:03 116 H 117/55 10/07/20 09:00 111 H 98 20 08:55 107 H 96 10/07/20 08:50 111 H 94/43 97 1520 08:45 113 H 97 1520 08:40 111 H 99 1520 08:35 114 H 97 10/07/20 08:30 119 H 98 Intake and Output 10/07/20 10/08/20 10/08/20 23:59 07:59 15:59 Intake Total 710 Output Total 700 1700 Balance 10 -1700 Intake: IV 350 ANCEF/NS 1 GM/50 ML 1 gm 50 In 50 ml @ 100 mls/hr IV Q8H [facility] Rx#:[id number] Oral 360 Output: Urine 700 1700 Indwelling Catheter 1700 Other: Total, Intake Amount 360 Total, Output Amount 400 - Exam Abdomen: Present: soft. Absent: distention Uterus: Present: firm, fundal height below umbilicus. Absent: bogginess Extremities: Present: normal - Labs Labs: Abnormal lab results 10/08/20 Range/Units 06:59 Hgb 9.4 L (10.1-14.3) gm/dl Hct 28.7 L D (30.3-42.9) %
[2020-10-08] MEDS: oxyCODONE /ACETAMINOPHEN 5-325MG TAB PO PRN ×2 (08:38→16:55)
[2020-10-08] MEDS ORDERED: FERROUS SULFATE 325 MG TAB PO SCH (10:00)
[2020-10-08] MEDS: IBUPROFEN 800 MG TAB PO PRN (18:30)
--- NOTE | 2020-10-09 08:45 | Progress Note ---
Assessment and Plan A: POD2 s/p pLTCS Vital signs stable Acute anemia due to blood loss (Hgb 9.4) P: Rx for ferrous sulfate BID Bowel regimen Subjective - Subjective Date of service: 10/09/20 Principal diagnosis: s/p LTCS Interval history: POD1 s/p primary LTCS for failure to progress Patient reports: appetite normal, voiding normally, pain well controlled, ambulating normally, no flatus, no bowel movement [place]: doing well, bottle feeding Objective - Vital Signs Latest vital signs: Vital Signs Temp Pulse Resp BP BP Pulse Ox 10/09/20 00:00 98.1 F 99 H 20 110/70 100 10/08/20 18:18 97.9 F 101 H 18 107/62 96 10/08/20 09:39 97.7 F 109 H 18 113/75 95 Intake and Output 10/08/20 10/09/20 10/09/20 23:59 07:59 15:59 Intake Total 240 Balance 240 Intake: Oral 240 Other: Total, Intake Amount 240 # Voids Void 1 - Exam Breasts: Present: normal Lungs: Present: Normal air movement Abdomen: Present: normal appearance, soft. Absent: distention, tenderness Uterus: Present: normal, firm, fundal height below umbilicus. Absent: bogginess, tenderness Extremities: Present: normal Incision: Present: dressed
--- NOTE | 2020-10-09 08:46 | Discharge Summary ---
Providers - Providers Date of Admission: 10/06/20 18:57 Date of discharge: 10/09/20 Attending physician: TOMASA MARADIAGA 10/07/20 17:01 Consult to Auto Damage Appraiser [CONS] Routine Reason For Exam: Primary care physician: TOMASA MARADIAGA Hospitalization Reason for admission: active labor, IUP - Delivery: (FTD) Procedure: primary low transverse Incision: normal, dry, intact Other procedures: none complications: uterine atony Discharge diagnosis: delivery [place] baby: female Condition at discharge: Good Disposition: - TO HOME OR SELFCARE Plan - Discharge Medications Prescriptions: Ferrous Sulfate [Feosol 325 MG tab] 325 mg PO BID #60 tablet Ibuprofen [Motrin 800 MG tab] 600 mg PO Q6H PRN #60 tablet PRN Reason: Pain, Mild (1-3) - Provider Discharge Summary Activity: routine, no sex for 6 weeks, no heavy lifting 4 weeks, no strenuous exercise Diet: routine Instructions: routine Additional instructions: [] Smoking cessation referral if applicable(refer to patient education folder for contact #) [] Refer to [facility]'s [facility] Booklet Call your doctor immediately for: * Fever > 100.5 * Heavy vaginal bleeding ( >1 pad per hour) * Severe persistent headache * Shortness of breath * Reddened, hot, painful area to leg or breast * Drainage or odor from incision. * Keep incision clean and dry at all times and follow doctor's instructions regarding bathing/showering - Follow up plan Follow up: TOMASA MARADIAGA MD [Primary Care Provider] - 14 Days (Please call office to schedule appointment.)
[2020-10-09] MEDS ORDERED: HYDROCORTISONE 1% CREAM 28.4GM TP PRN (09:00)
[2020-10-09] MEDS: MAGNESIUM HYDROXIDE (MOM) ORAL LIQD UDC PO SCH ×2 (09:17→14:16)
[2020-10-09] MEDS: oxyCODONE /ACETAMINOPHEN 5-325MG TAB PO PRN (09:17)
[2020-10-09 17:22] VITALS: BP 128/76
[2020-10-09] MEDS: IBUPROFEN 800 MG TAB PO PRN (18:50)
== END 2020-10-09 20:17 | disposition home or self-care (01) | DRG 787 ==
LOC: TRG 13:29 → APU 13:31 → TRG 18:57 → OBSVTOIN 18:57 → LD 18:57 → OB 10-07 16:41
PROVIDERS: ADMIT Obstetrics & Gynecology; ATTEND Obstetrics & Gynecology
PROC: 10D00Z1 Extraction of Products of Conception, Low, Open Approach (ICD-10-PCS; principal; 2020-10-07)
PROC: 3E0R3BZ Introduction of Anesthetic Agent into Spinal Canal, Percutaneous Approach (ICD-10-PCS; 2020-10-07)
PROC: 00HU33Z Insertion of Infusion Device into Spinal Canal, Percutaneous Approach (ICD-10-PCS; 2020-10-07)
PROC: 10907ZC Drainage of Amniotic Fluid, Therapeutic from Products of Conception, Via Natural or Artificial Opening (ICD-10-PCS; 2020-10-07)
PROC: 10H07YZ Insertion of Other Device into Products of Conception, Via Natural or Artificial Opening (ICD-10-PCS; 2020-10-07)
PROC: 3E0234Z Introduction of Serum, Toxoid and Vaccine into Muscle, Percutaneous Approach (ICD-10-PCS; 2020-10-08)
DX: O60.14X0 Preterm labor third trimester with preterm delivery third trimester, not applicable or unspecified (principal); D62 Acute posthemorrhagic anemia; O98.32 Other infections with a predominantly sexual mode of transmission complicating childbirth; O62.1 Secondary uterine inertia; Z37.0 Single live birth; Z3A.36 36 weeks gestation of pregnancy; Z20.828 Contact with and (suspected) exposure to other viral communicable diseases; Z23 Encounter for immunization; O99.214 Obesity complicating childbirth; E66.01 Morbid (severe) obesity due to excess calories; O99.284 Endocrine, nutritional and metabolic diseases complicating childbirth; E05.90 Thyrotoxicosis, unspecified without thyrotoxic crisis or storm; O99.814 Abnormal glucose complicating childbirth; A60.00 Herpesviral infection of urogenital system, unspecified; O75.89 Other specified complications of labor and delivery; M54.30 Sciatica, unspecified side; O99.02 Anemia complicating childbirth; D57.3 Sickle-cell trait; O99.62 Diseases of the digestive system complicating childbirth; K21.9 Gastro-esophageal reflux disease without esophagitis; O77.0 Labor and delivery complicated by meconium in amniotic fluid
CPT/HCPCS: 36415; 76815; 76819; 85014; 85018; 85025; 86592; 86850; 86900; 86901; 87806; G0378; A6250; J0690; J1885; J2270; J2405; J2590; J3010; J3490; J7120; J7121; U0003

== ENCOUNTER 2022-06-11 17:55 | Outpatient (CLI) | payer OTHER ==
[2022-06-11] MEDS ORDERED: LACTATED RINGERS 500 ML IV ONE (18:30)
[2022-06-11 19:48] LABS: Bacteria,Urine 4+ /HPF (Negative); Hyaline Casts,Urine 4 /LPF
[2022-06-11 19:59] LABS: Color,Urine Yellow (Yellow)
[2022-06-11 20:16] VITALS: BP 140/65
== END 2022-06-11 20:24 | disposition home or self-care (01) ==
LOC: TRG 17:55 → APU 17:58 → TRG 20:24
PROVIDERS: ATTEND Obstetrics & Gynecology
DX: O26.892 Other specified pregnancy related conditions, second trimester (principal); M79.89 Other specified soft tissue disorders; N76.89 Other specified inflammation of vagina and vulva; Z3A.25 25 weeks gestation of pregnancy
CPT/HCPCS: 36415; 81001; 84112; 87086

== ENCOUNTER 2022-07-21 22:23 | Outpatient (CLI) | payer OTHER ==
[2022-07-21 23:45] LABS: Hematocrit 34.3 % (30.3-42.9); Hemoglobin 11.5 gm/dl (10.1-14.3); Mean Corpuscular HGB Conc 34 % (30-34); Mean Corpuscular Volume 85 fl (79-97); Platelet Count 281 K/mm3 (140-440); Red Blood Count 4.03 M/mm3 (3.65-5.03); Red Cell Distribution Width 13.8 % (13.2-15.2)
[2022-07-21 23:47] LABS: Bilirubin,Urine NEG (Negative); Blood,Urine NEG (Negative); Color,Urine Yellow (Yellow); Protein,Urine <15 mg/dL mg/dL (Negative)
[2022-07-21 23:57] LABS: Bacteria,Urine 2+ /HPF (Negative); Mucus,Urine FEW /HPF; Urobilinogen,Urine < 2 mg/dL (<2.0)
[2022-07-22 01:32] LABS: Alanine Aminotransferase 11 units/L (7-56)
[2022-07-22 02:00] VITALS: BP 130/60
[2022-07-22 02:51] LABS: Uric Acid 4.6 mg/dL (3.5-7.6)
== END 2022-07-22 06:02 | disposition home or self-care (01) ==
LOC: TRG 22:23 → APU 22:26 → TRG 07-22 03:00 → APU 07-22 03:00 → TRG 07-22 06:02
PROVIDERS: ATTEND Obstetrics & Gynecology
DX: O16.3 Unspecified maternal hypertension, third trimester (principal); Z3A.30 30 weeks gestation of pregnancy
CPT/HCPCS: 36415; 59025; 81001; 82565; 83615; 84450; 84460; 84550; 85027